=== PATIENT | male | born 1950 | race Caucasian/White ===

== ENCOUNTER 2022-12-24 01:16 | Inpatient (IN) | payer OTHER ==
[2022-12-24 01:53] LABS: #Basophils 0.1 thou/uL (0.0-0.2); #Eosinphils 0.1 thou/uL (0.0-0.7); #Lymphocytes 1.6 thou/uL (1.20-3.40); #Monocytes 0.7 thou/uL (0.11-0.59); #Neutrophils 7.8 thou/uL (1.40-6.50); %Basophils 0.5 % (0.0-1.0); %Eosinophils 0.9 % (0.0-10.0); %Lymphocytes 15.8 % (21.0-51.0); %Monocytes 6.5 % (0.0-10.0); %Neutrophils 76.3 % (42.0-75.0); Hemoglobin 10.3 g/dL (14.0-18.0); Mean Corpuscular Hemoglobin 26.6 pg (27.0-31.0); Mean Corpuscular Volume 80.6 fl (78.0-98.0); Mean Platelet Volume 8.7 fL (7.4-10.4); Platelet Count 247 10x3/uL (130-400); Red Blood Cell (RBC) Count 3.88 mill/uL (4.70-6.10); White Blood Cell (WBC) Count 10.2 10x3/uL (4.8-10.8)
[2022-12-24 02:03] LABS: INR-International Normal Ratio 1.2; PTT 24.7 sec (22.9-36.1); Prothrombin Time 15.4 sec (12.0-14.7)
[2022-12-24 02:16] LABS: ALT (SGPT) 10 U/L (8-55); AST (SGOT) 16 U/L (5-34); Acetaminophen Less than 10.0 mcg/mL (10.0-30.0); Albumin 3.3 g/dL (3.4-4.8); Alcohol Less than 10 mg/dL (Less than 10); Alkaline Phosphatase 89 U/L (40-110); Anion Gap 15 mmol/L (10-20); BUN (Urea Nitrogen) 11 mg/dL (8.4-25.7); Bilirubin, Total 0.4 mg/dL (0.2-1.2); CK (CPK) 63 U/L (30-200); Calc. Creatinine Clearance 0 mL/min (70-130); Calcium 8.1 mg/dL (7.8-10.44); Carbon Dioxide 23 mmol/L (23-31); Chloride 99 mmol/L (98-107); Estimated GFR 90; Globulin 2.9 g/dL (2.4-3.5); Glucose 147 mg/dL (83-110); Protein, Total 6.2 g/dL (5.8-8.1); Salicylate Less than 8.0 mg/dL (15.0-30.0); Sodium 135 mmol/L (136-145)
[2022-12-24 02:23] LABS: Potassium 2.3 mmol/L (3.5-5.1)
[2022-12-24 02:36] LABS: CKMB 1.3 ng/mL (0-6.6)
[2022-12-24] MEDS ORDERED: Aspirin Chewable 81 MG TAB ONE (02:43)
[2022-12-24] MEDS ORDERED: Potassium Chloride 20 MEQ TAB ONE (02:43)
[2022-12-24] MEDS: Potassium Chloride 10 MEQ in Premix Bag 1 BAG IVPB SCH ×2 (03:15→07:21)
[2022-12-24 03:24] LABS: Bilirubin Negative (Negative); Blood, Urine Negative (Negative); Clarity Clear (Clear); Glucose, Urine (Dipstick) Greater than 1000 mg/dL (Negative); Ketone, Urine Negative (Negative); Leukocyte Negative Leu/uL (Negative); Nitrite Negative (Negative); Protein, Urine (Dipstick) 10 mg/dL (Neg-Trace); Specific Gravity, Urine 1.039 (1.002-1.036); Urobilinogen Normal mg/dL (Less than 2)
[2022-12-24 03:33] LABS: Amphetamine Not Detected (NotDetected); Barbiturates Screen Not Detected (NotDetected); Benzodiazepine Screen Not Detected (NotDetected); Cocaine Metabolite Screen Not Detected (NotDetected); Methadone Not Detected (NotDetected); Methamphetamine Not Detected (NotDetected); Opiate Screen Detected (NotDetected); Oxycodone Screen Not Detected (NotDetected); Phencyclidine (PCP) Not Detected (NotDetected); THC/Cannabinoid Screen Not Detected (NotDetected); Tricyclic Screen Not Detected (NotDetected)
[2022-12-24 03:53] LABS: SARS-CoV-2 NAA Rapid Test Not Detected (NotDetected)
[2022-12-24] MEDS ORDERED: HYDROcodone/Acetaminophen 10/325 mg Tablet ONE (04:23)
[2022-12-24] MEDS ORDERED: Gabapentin 300 MG CAP PO SCH (04:30)
[2022-12-24 05:02] LABS: Lactic Acid 1.1 mmol/L (0.5-2.2)
[2022-12-24] MEDS ORDERED: Dextrose 5% in Water 1,000 ML IV PRN (05:24)
[2022-12-24] MEDS ORDERED: Ondansetron PF 4 MG/2 ML Vial IVP PRN (05:24)
[2022-12-24] MEDS ORDERED: Acetaminophen 650 MG Suppository PR PRN (05:24)
[2022-12-24] MEDS ORDERED: Acetaminophen 325 MG TAB PO PRN (05:24)
[2022-12-24] MEDS ORDERED: hydrALAZINE 20 MG/ML VIAL SLOW IVP PRN (05:24)
[2022-12-24] MEDS ORDERED: HumaLOG 300 UNITS/3 ML VIAL SC PRN (05:24)
[2022-12-24] MEDS ORDERED: Ondansetron ODT 4 MG TAB PO PRN (05:24)
[2022-12-24] MEDS ORDERED: Dextrose 50% Abboject 50 ML SYRINGE SLOW IVP PRN (05:24)
[2022-12-24] MEDS ORDERED: Electrolyte Replacement Protocol 1 EACH FS SCH (05:30)
[2022-12-24 06:09] LABS: #Eosinphils 0.1 thou/uL (0.0-0.7); #Lymphocytes 1.3 thou/uL (1.20-3.40); #Monocytes 0.7 thou/uL (0.11-0.59); #Neutrophils 8.2 thou/uL (1.40-6.50); %Basophils 0.3 % (0.0-1.0); %Eosinophils 1.2 % (0.0-10.0); %Lymphocytes 12.3 % (21.0-51.0); %Neutrophils 79.2 % (42.0-75.0); Hemoglobin 10.4 g/dL (14.0-18.0); Mean Corpuscular HGB CONC 31.9 g/dL (32.0-36.0); Mean Corpuscular Hemoglobin 25.7 pg (27.0-31.0); Mean Corpuscular Volume 80.5 fl (78.0-98.0); Mean Platelet Volume 8.8 fL (7.4-10.4); Platelet Count 263 10x3/uL (130-400); RBC Distribution Width 15.3 % (11.5-14.5); Red Blood Cell (RBC) Count 4.04 mill/uL (4.70-6.10); White Blood Cell (WBC) Count 10.3 10x3/uL (4.8-10.8)
[2022-12-24 06:27] LABS: Anion Gap 15 mmol/L (10-20); BUN (Urea Nitrogen) 11 mg/dL (8.4-25.7); Calc. Creatinine Clearance 0 mL/min (70-130); Calcium 8.1 mg/dL (7.8-10.44); Carbon Dioxide 24 mmol/L (23-31); Chloride 100 mmol/L (98-107); Estimated GFR 90; Glucose 56 mg/dL (83-110); Sodium 136 mmol/L (136-145)
[2022-12-24 06:34] LABS: Potassium 2.6 mmol/L (3.5-5.1)
[2022-12-24] MEDS: Sodium Chloride 0.9% 1,000 ML IV SCH ×2 (06:50→15:35)
[2022-12-24] MEDS: Potassium Chloride 20 MEQ TAB PO SCH ×5 (07:22→16:33)
[2022-12-24] MEDS ORDERED: Magnesium 2 GM/50 ML(in water) 2 GM in Premix Bag 1 BAG IVPB SCH ×2 (08:00→12:45)
[2022-12-24 09:22] LABS: Troponin I 0.039 ng/mL (< 0.028)
[2022-12-24] MEDS ORDERED: Iopamidol-370 76% 500 ML 1 ML ONE (09:24)
[2022-12-24] MEDS ORDERED: Magnevist 469MG/ML 20 ML VIAL ONE (09:44)
[2022-12-24] MEDS: Aspirin 81 mg Enteric Coated Tablet PO SCH (09:48)
[2022-12-24 10:48] LABS: Anion Gap 16 mmol/L (10-20); BUN (Urea Nitrogen) 11 mg/dL (8.4-25.7); Calc. Creatinine Clearance 0 mL/min (70-130); Carbon Dioxide 22 mmol/L (23-31); Chloride 99 mmol/L (98-107); Estimated GFR 87; Glucose 87 mg/dL (83-110); Potassium 2.7 mmol/L (3.5-5.1); Sodium 134 mmol/L (136-145)
[2022-12-24 10:55] LABS: Anion Gap 15 mmol/L (10-20); BUN (Urea Nitrogen) 11 mg/dL (8.4-25.7); Calc. Creatinine Clearance 0 mL/min (70-130); Calcium 8.2 mg/dL (7.8-10.44); Carbon Dioxide 24 mmol/L (23-31); Chloride 100 mmol/L (98-107); Estimated GFR 81; Glucose 165 mg/dL (83-110); Potassium 2.9 mmol/L (3.5-5.1); Sodium 136 mmol/L (136-145)
[2022-12-24 21:55] VITALS: BMI 20.3
[2022-12-25 06:00] LABS: #Eosinphils 0.3 thou/uL (0.0-0.7); #Lymphocytes 1.2 thou/uL (1.20-3.40); #Monocytes 0.5 thou/uL (0.11-0.59); #Neutrophils 5.3 thou/uL (1.40-6.50); %Basophils 0.5 % (0.0-1.0); %Eosinophils 4.2 % (0.0-10.0); %Lymphocytes 16.5 % (21.0-51.0); %Monocytes 7.1 % (0.0-10.0); %Neutrophils 71.8 % (42.0-75.0); Hemoglobin 10.1 g/dL (14.0-18.0); Mean Corpuscular Hemoglobin 26.1 pg (27.0-31.0); Mean Corpuscular Volume 81.5 fl (78.0-98.0); Mean Platelet Volume 8.7 fL (7.4-10.4); Platelet Count 231 10x3/uL (130-400); Red Blood Cell (RBC) Count 3.88 mill/uL (4.70-6.10); White Blood Cell (WBC) Count 7.4 10x3/uL (4.8-10.8)
[2022-12-25 06:20] LABS: Anion Gap 11 mmol/L (10-20); BUN (Urea Nitrogen) 8 mg/dL (8.4-25.7); Calc. Creatinine Clearance 59 mL/min (70-130); Calcium 7.5 mg/dL (7.8-10.44); Carbon Dioxide 25 mmol/L (23-31); Cardiac Risk 4.4 (Less than 4.5); Chloride 100 mmol/L (98-107); Cholesterol 74 mg/dl (< 200 Desired); Estimated GFR 90; Glucose 304 mg/dL (83-110); HDL Cholesterol 17 mg/dL (>60 Neg Risk); LDL Cholesterol, Calculated 38 mg/dL; Magnesium 1.9 mg/dL (1.6-2.6); Potassium 3.2 mmol/L (3.5-5.1); Sodium 133 mmol/L (136-145); Triglycerides 95 mg/dL (Less than 150)
[2022-12-25] MEDS: HumaLOG 300 UNITS/3 ML VIAL SC PRN ×2 (06:51→21:20)
[2022-12-25] MEDS ORDERED: Magnesium 2 GM/50 ML(in water) 2 GM in Premix Bag 1 BAG IVPB SCH (08:15)
[2022-12-25] MEDS ORDERED: Potassium Chloride 20 MEQ TAB PO SCH (08:30)
[2022-12-25] MEDS: Aspirin 81 mg Enteric Coated Tablet PO SCH (10:23)
[2022-12-25] MEDS ORDERED: Insulin Glargine 30 UNITS/0.3 ML VIAL SC SCH ×2 (11:00→21:00)
[2022-12-25] MEDS ORDERED: Acetaminophen/Codeine 30-300mg Tablet PO PRN (19:56)
[2022-12-25] MEDS: Atorvastatin Calcium 40 MG TAB PO SCH (21:17)
[2022-12-25] MEDS: traZODone HCl 50 MG TAB PO SCH (21:18)
[2022-12-25] MEDS ORDERED: HumaLOG 300 UNITS/3 ML VIAL SC SCH (21:45)
[2022-12-25 22:12] LABS: Hemoglobin A1c 9.3 % (4.0-6.0)
[2022-12-26] MEDS ORDERED: Insulin Glargine 30 UNITS/0.3 ML VIAL SC SCH (09:00)
[2022-12-26] MEDS ORDERED: Regadenoson 0.4 MG/5 ML SYRINGE ONE (09:04)
[2022-12-26] MEDS: Finasteride 5 MG TAB PO SCH (09:21)
[2022-12-26] MEDS: Venlafaxine HCl XR 150 MG CAP PO SCH (09:21)
[2022-12-26] MEDS: Tamsulosin HCl 0.4 MG CAP PO SCH (09:21)
[2022-12-26] MEDS: Clopidogrel Bisulfate 75 MG TAB PO SCH (09:21)
[2022-12-26] MEDS: Aspirin 81 mg Enteric Coated Tablet PO SCH (09:21)
[2022-12-26 09:23] LABS: #Eosinphils 0.3 thou/uL (0.0-0.7); #Lymphocytes 1.9 thou/uL (1.20-3.40); #Monocytes 0.8 thou/uL (0.11-0.59); #Neutrophils 7.7 thou/uL (1.40-6.50); %Basophils 0.2 % (0.0-1.0); %Eosinophils 3.1 % (0.0-10.0); %Neutrophils 71.7 % (42.0-75.0); Hemoglobin 12.3 g/dL (14.0-18.0); Mean Corpuscular HGB CONC 30.9 g/dL (32.0-36.0); Mean Corpuscular Hemoglobin 25.1 pg (27.0-31.0); Mean Corpuscular Volume 81.5 fl (78.0-98.0); Mean Platelet Volume 8.4 fL (7.4-10.4); Platelet Count 310 10x3/uL (130-400); RBC Distribution Width 15.3 % (11.5-14.5); White Blood Cell (WBC) Count 10.7 10x3/uL (4.8-10.8)
[2022-12-26 09:51] LABS: ALT (SGPT) 12 U/L (8-55); AST (SGOT) 18 U/L (5-34); Alkaline Phosphatase 104 U/L (40-110); Anion Gap 17 mmol/L (10-20); BUN (Urea Nitrogen) 14 mg/dL (8.4-25.7); Bilirubin, Total 0.6 mg/dL (0.2-1.2); Calc. Creatinine Clearance 51 mL/min (70-130); Carbon Dioxide 26 mmol/L (23-31); Chloride 99 mmol/L (98-107); Estimated GFR 75; Globulin 3.5 g/dL (2.4-3.5); Glucose 173 mg/dL (83-110); Potassium 3.7 mmol/L (3.5-5.1); Protein, Total 7.5 g/dL (5.8-8.1); Sodium 138 mmol/L (136-145)
[2022-12-26] MEDS: HumaLOG 300 UNITS/3 ML VIAL SC PRN ×3 (11:52→17:56)
[2022-12-26 17:20] LABS: Glucose POC Confirmation 596 mg/dL (83-110)
[2022-12-26] MEDS ORDERED: Sucralfate 1 GM TAB PO SCH (19:45)
[2022-12-26] MEDS: Insulin Glargine 30 UNITS/0.3 ML VIAL SC SCH (20:22)
[2022-12-26] MEDS: Atorvastatin Calcium 40 MG TAB PO SCH (20:22)
[2022-12-26] MEDS: traZODone HCl 50 MG TAB PO SCH (20:22)
[2022-12-27 00:06] LABS: Campy jejuni + coli by PCR Negative (Negative); STEC Shiga Toxin 1+2 Negative (Negative); Salmonella spp. by PCR Negative (Negative); Shigella spp + EIEC by PCR Negative (Negative)
[2022-12-27 05:26] LABS: #Eosinphils 0.3 thou/uL (0.0-0.7); #Lymphocytes 1.8 thou/uL (1.20-3.40); #Monocytes 0.6 thou/uL (0.11-0.59); %Basophils 0.5 % (0.0-1.0); %Eosinophils 3.1 % (0.0-10.0); %Lymphocytes 18.1 % (21.0-51.0); %Monocytes 6.2 % (0.0-10.0); %Neutrophils 72.1 % (42.0-75.0); Hemoglobin 11.2 g/dL (14.0-18.0); Mean Corpuscular HGB CONC 32.5 g/dL (32.0-36.0); Mean Corpuscular Hemoglobin 26.1 pg (27.0-31.0); Mean Corpuscular Volume 80.5 fl (78.0-98.0); Mean Platelet Volume 8.9 fL (7.4-10.4); Platelet Count 259 10x3/uL (130-400); RBC Distribution Width 15.1 % (11.5-14.5); Red Blood Cell (RBC) Count 4.27 mill/uL (4.70-6.10); White Blood Cell (WBC) Count 9.7 10x3/uL (4.8-10.8)
[2022-12-27 05:50] LABS: Anion Gap 14 mmol/L (10-20); BUN (Urea Nitrogen) 16 mg/dL (8.4-25.7); Calc. Creatinine Clearance 63 mL/min (70-130); Calcium 8.4 mg/dL (7.8-10.44); Carbon Dioxide 24 mmol/L (23-31); Chloride 102 mmol/L (98-107); Estimated GFR 92; Glucose 150 mg/dL (83-110); Magnesium 2.1 mg/dL (1.6-2.6); Phosphorus 3.7 mg/dL (2.3-4.7); Potassium 3.6 mmol/L (3.5-5.1); Sodium 136 mmol/L (136-145)
[2022-12-27 08:00] VITALS: BP 123/73
[2022-12-27] MEDS ORDERED: fentaNYL PF 100 MCG/2 ML SYRINGE ONE (10:06)
[2022-12-27] MEDS: Aspirin 81 mg Enteric Coated Tablet PO SCH (10:58)
[2022-12-27] MEDS: Finasteride 5 MG TAB PO SCH (10:58)
[2022-12-27] MEDS: Clopidogrel Bisulfate 75 MG TAB PO SCH (10:58)
[2022-12-27] MEDS: Tamsulosin HCl 0.4 MG CAP PO SCH (10:59)
[2022-12-27] MEDS: Venlafaxine HCl XR 150 MG CAP PO SCH (10:59)
[2022-12-27] MEDS ORDERED: Insulin Glargine 30 UNITS/0.3 ML VIAL SC SCH (11:00)
[2022-12-27] MEDS ORDERED: Protamine Sulfate 50 MG/5 ML VIAL ONE (12:44)
[2022-12-27] MEDS ORDERED: Heparin 5,000 UNITS/ML VIAL ONE (12:44)
[2022-12-27] MEDS ORDERED: Bupivacaine/Epinephrine 0.25% 30 ML VIAL ONE (12:44)
[2022-12-27] MEDS ORDERED: CEFAZOLIN 2 GM VIAL ONE (12:51)
[2022-12-27] MEDS ORDERED: Sodium Chloride 0.9% 100 ML ONE (12:51)
[2022-12-27] MEDS ORDERED: ePHEDrine 50 MG/ML VIAL ONE (13:01)
[2022-12-27] MEDS ORDERED: Rocuronium Bromide 10 MG/ML (10ML VIAL) ONE (13:01)
[2022-12-27] MEDS ORDERED: PHENYLEPHRINE-NS 100 MCG/ML 10 ML SYRINGE ONE (13:01)
[2022-12-27] MEDS ORDERED: Glycopyrrolate 0.2 MG/ML 5 ML SYRINGE ONE (13:01)
[2022-12-27] MEDS ORDERED: Labetalol HCl 100 MG/20 ML VIAL ONE (13:01)
[2022-12-27] MEDS ORDERED: PROPOFOL 200 MG/20 ML VIAL ONE (13:01)
[2022-12-27] MEDS ORDERED: NEOSTIGMINE 3 MG/3 ML SYR 3 MG/3 ML SYRINGE ONE (13:01)
[2022-12-27] MEDS ORDERED: Bupivacaine HCl 0.5%/Epinephrine 1:200,000/PF 30 ml Vial ONE (13:32)
[2022-12-27] MEDS ORDERED: Fentanyl 100 MCG/2 ML VIAL ONE ×2 (15:12→15:40)
[2022-12-27] MEDS ORDERED: Ondansetron PF 4 MG/2 ML Vial IVP PRN (15:14)
[2022-12-27] MEDS ORDERED: Sodium Chloride 0.9% 1,000 ML IV SCH (15:14)
[2022-12-27] MEDS ORDERED: Acetaminophen 325 MG TAB PO PRN (15:14)
[2022-12-27] MEDS ORDERED: traMADol HCl 50 MG TAB PO PRN (15:14)
[2022-12-27] MEDS ORDERED: Ipratropium/Albuterol 3 ML NEB NEB PRN (15:14)
[2022-12-27] MEDS ORDERED: niCARdipine 25 MG in Sodium Chloride 0.9% 250 ML 250 ML IVPB PRN (15:14)
[2022-12-27] MEDS ORDERED: Fentanyl 100 MCG/2 ML VIAL SLOW IVP PRN (15:14)
[2022-12-27] MEDS ORDERED: Phenylephrine 40 MG/NS 250 ML 40 MG in Premix Bag 1 BAG IVPB PRN (15:22)
[2022-12-27] MEDS ORDERED: Sodium Chloride 0.9% 500 ML IVPB SCH (19:45)
[2022-12-27] MEDS: Atorvastatin Calcium 40 MG TAB PO SCH (21:01)
[2022-12-27] MEDS: traZODone HCl 50 MG TAB PO SCH (21:01)
[2022-12-27] MEDS: Insulin Glargine 30 UNITS/0.3 ML VIAL SC SCH (21:02)
[2022-12-27] MEDS: CEFAZOLIN 2 GM in Sodium Chloride 0.9% 100 ML IVPB SCH (21:02)
[2022-12-28] MEDS: CEFAZOLIN 2 GM in Sodium Chloride 0.9% 100 ML IVPB SCH (05:44)
[2022-12-28] MEDS: HumaLOG 300 UNITS/3 ML VIAL SC PRN (06:41)
[2022-12-28 08:13] VITALS: TEMP 97.6
[2022-12-28] MEDS: Aspirin 81 mg Enteric Coated Tablet PO SCH (09:09)
[2022-12-28] MEDS: Clopidogrel Bisulfate 75 MG TAB PO SCH (09:09)
[2022-12-28] MEDS: Finasteride 5 MG TAB PO SCH (09:09)
[2022-12-28] MEDS: Venlafaxine HCl XR 150 MG CAP PO SCH (09:10)
[2022-12-28] MEDS: Tamsulosin HCl 0.4 MG CAP PO SCH (09:10)
== END 2022-12-28 14:10 | disposition home or self-care (01) | DRG 38 ==
LOC: ERS 01:16 → ERHOLD 04:18 → NEURO 11:55 → CCU 12-27 08:48 → IMCU/EMU 12-27 17:43
PROVIDERS: ADMIT Student in an Organized Health Care Education/Training Program; ATTEND Internal Medicine
PROC: 03CL0ZZ Extirpation of Matter from Left Internal Carotid Artery, Open Approach (ICD-10-PCS; principal; 2022-12-27)
PROC: 03UL0KZ Supplement Left Internal Carotid Artery with Nonautologous Tissue Substitute, Open Approach (ICD-10-PCS; 2022-12-27)
DX: I63.232 Cerebral infarction due to unspecified occlusion or stenosis of left carotid arteries (principal); G81.94 Hemiplegia, unspecified affecting left nondominant side; I25.10 Atherosclerotic heart disease of native coronary artery without angina pectoris; G62.9 Polyneuropathy, unspecified; I10 Essential (primary) hypertension; E78.5 Hyperlipidemia, unspecified; F17.210 Nicotine dependence, cigarettes, uncomplicated; E11.40 Type 2 diabetes mellitus with diabetic neuropathy, unspecified; E87.6 Hypokalemia; R77.8 Other specified abnormalities of plasma proteins; D64.9 Anemia, unspecified; K52.9 Noninfective gastroenteritis and colitis, unspecified; I45.81 Long QT syndrome; E11.51 Type 2 diabetes mellitus with diabetic peripheral angiopathy without gangrene; N40.0 Benign prostatic hyperplasia without lower urinary tract symptoms; Z79.82 Long term (current) use of aspirin; Z95.1 Presence of aortocoronary bypass graft; Z79.4 Long term (current) use of insulin; Z79.899 Other long term (current) drug therapy; Z90.49 Acquired absence of other specified parts of digestive tract; Z98.890 Other specified postprocedural states; Z79.2 Long term (current) use of antibiotics; Z20.822 Contact with and (suspected) exposure to COVID-19; Z79.02 Long term (current) use of antithrombotics/antiplatelets; R47.1 Dysarthria and anarthria; R29.702 NIHSS score 2
CPT/HCPCS: 36415; 36416; 70450; 70496; 70498; 70553; 71045; 78452; 80048; 80053; 80061; 80306; 80307; 81003; 82550; 82553; 83036; 83605; 83690; 83735; 83880; 84100; 84484; 85025; 85610; 85730; 87324; 87449; 87505; 93005; 93017; 93306; 93923; 94640; A9500; A9579; C1768; C1776; J1644; J1650; J1815; J2405; J2704; J2720; J2785; J3010; J3475; J3480; J3490; J7030; J7050; Q9967; U0002

== ENCOUNTER 2023-01-01 11:08 | Emergency (ER) | payer MEDICARE, OTHER ==
[2023-01-01] MEDS ORDERED: Aspirin Chewable 81 MG TAB ONE (12:12)
[2023-01-01 12:17] LABS: #Basophils 0.1 thou/uL (0.0-0.2); #Eosinphils 0.2 thou/uL (0.0-0.7); #Lymphocytes 1.8 thou/uL (1.20-3.40); #Monocytes 0.6 thou/uL (0.11-0.59); #Neutrophils 11.9 thou/uL (1.40-6.50); %Basophils 0.5 % (0.0-1.0); %Eosinophils 1.4 % (0.0-10.0); %Lymphocytes 12.5 % (21.0-51.0); %Monocytes 4.3 % (0.0-10.0); %Neutrophils 81.3 % (42.0-75.0); Hemoglobin 10.9 g/dL (14.0-18.0); Mean Corpuscular HGB CONC 31.2 g/dL (32.0-36.0); Mean Corpuscular Hemoglobin 25.5 pg (27.0-31.0); Mean Corpuscular Volume 81.6 fl (78.0-98.0); Mean Platelet Volume 8.8 fL (7.4-10.4); Platelet Count 394 10x3/uL (130-400); RBC Distribution Width 15.8 % (11.5-14.5); Red Blood Cell (RBC) Count 4.27 mill/uL (4.70-6.10); White Blood Cell (WBC) Count 14.7 10x3/uL (4.8-10.8)
[2023-01-01 12:39] LABS: ALT (SGPT) 16 U/L (8-55); AST (SGOT) 24 U/L (5-34); Albumin 3.8 g/dL (3.4-4.8); Alkaline Phosphatase 99 U/L (40-110); Anion Gap 16 mmol/L (10-20); BUN (Urea Nitrogen) 19 mg/dL (8.4-25.7); Bilirubin, Total 0.6 mg/dL (0.2-1.2); Calc. Creatinine Clearance 0 mL/min (70-130); Calcium 8.9 mg/dL (7.8-10.44); Carbon Dioxide 22 mmol/L (23-31); Chloride 100 mmol/L (98-107); Estimated GFR 64; Globulin 3.5 g/dL (2.4-3.5); Glucose 299 mg/dL (83-110); Lipase 8 U/L (8-78); Potassium 4.4 mmol/L (3.5-5.1); Protein, Total 7.3 g/dL (5.8-8.1); Sodium 134 mmol/L (136-145)
[2023-01-01 13:04] LABS: CKMB 6.7 ng/mL (0-6.6)
[2023-01-01 16:37] LABS: CKMB 16.1 ng/mL (0-6.6)
== END 2023-01-01 16:44 | disposition short-term general hospital (02) ==
LOC: ERS 11:08
DX: I21.4 Non-ST elevation (NSTEMI) myocardial infarction (principal); D72.829 Elevated white blood cell count, unspecified; F17.210 Nicotine dependence, cigarettes, uncomplicated; I10 Essential (primary) hypertension; I25.10 Atherosclerotic heart disease of native coronary artery without angina pectoris; E78.5 Hyperlipidemia, unspecified; E11.40 Type 2 diabetes mellitus with diabetic neuropathy, unspecified
CPT/HCPCS: 36415; 36416; 70450; 71045; 80053; 82553; 83690; 84484; 85025; 93005; 94760

== ENCOUNTER 2023-05-21 12:34 | Emergency (ER) | payer MEDICARE ==
[2023-05-21 14:51] LABS: #Basophils 0.1 thou/uL (0.0-0.2); #Monocytes 0.6 thou/uL (0.11-0.59); #Neutrophils 7.2 thou/uL (1.40-6.50); %Basophils 0.8 % (0.0-1.0); %Lymphocytes 15.2 % (21.0-51.0); %Monocytes 6.4 % (0.0-10.0); %Neutrophils 77.3 % (42.0-75.0); Hemoglobin 10.4 g/dL (14.0-18.0); Mean Corpuscular HGB CONC 30.3 g/dL (32.0-36.0); Mean Corpuscular Hemoglobin 22.4 pg (27.0-31.0); Mean Corpuscular Volume 73.8 fl (78.0-98.0); Mean Platelet Volume 10.7 fL (7.4-10.4); Platelet Count 309 10x3/uL (130-400); RBC Distribution Width 19.9 % (11.5-14.5); Red Blood Cell (RBC) Count 4.65 mill/uL (4.70-6.10); White Blood Cell (WBC) Count 9.3 10x3/uL (4.8-10.8)
[2023-05-21 15:25] LABS: Band 9 % (5-11); Burr Cells SLIGHT = 2-5 cells HPF (0-1); CellaVision Operator ID LAB.KB; Hypochromia SLIGHT = 6-15 cells HPF (0-5); Lymphocytes 10 % (21-51); Manual Diff?? YES; Microcytosis SLIGHT = 6-15 cells HPF (0-5); Monocytes 1 % (0-10); Neutrophil 79 % (42-75); Ovalocytes SLIGHT = 2-5 cells HPF (0-1); Platelet Adequacy Comment Platelets Normal; Polychromasia SLIGHT = 2-3 cells HPF (0-2); Reactive Lymphocytes 1 % (0-10); Total Cell Count 100
[2023-05-21 15:28] LABS: ALT (SGPT) 10 U/L (8-55); AST (SGOT) 11 U/L (5-34); Alkaline Phosphatase 93 U/L (40-110); Anion Gap 17 mmol/L (10-20); BUN (Urea Nitrogen) 14 mg/dL (8.4-25.7); Bilirubin, Total 0.6 mg/dL (0.2-1.2); Calc. Creatinine Clearance 0 mL/min (70-130); Calcium 8.6 mg/dL (7.8-10.44); Carbon Dioxide 25 mmol/L (23-31); Chloride 101 mmol/L (98-107); Estimated GFR 88; Globulin 2.8 g/dL (2.4-3.5); Glucose 203 mg/dL (83-110); Lipase 9 U/L (8-78); Potassium 3.5 mmol/L (3.5-5.1); Protein, Total 6.8 g/dL (5.8-8.1); Sodium 139 mmol/L (136-145)
== END 2023-05-21 15:48 | disposition home or self-care (01) ==
LOC: ERS 12:34
DX: K52.9 Noninfective gastroenteritis and colitis, unspecified (principal); I10 Essential (primary) hypertension; E78.5 Hyperlipidemia, unspecified; I25.10 Atherosclerotic heart disease of native coronary artery without angina pectoris; E11.40 Type 2 diabetes mellitus with diabetic neuropathy, unspecified; F17.210 Nicotine dependence, cigarettes, uncomplicated
CPT/HCPCS: 36415; 80053; 83690; 84484; 85025; 93005

== ENCOUNTER 2023-07-10 23:01 | Inpatient (IN) | payer OTHER, MEDICARE ==
[2023-07-11] MEDS ORDERED: Dextrose 50% Abboject 50 ML SYRINGE SLOW IVP PRN (00:20)
[2023-07-11] MEDS ORDERED: Ondansetron ODT 4 MG TAB PO PRN (00:20)
[2023-07-11] MEDS ORDERED: hydrALAZINE 20 MG/ML VIAL SLOW IVP PRN (00:20)
[2023-07-11] MEDS ORDERED: Ipratropium/Albuterol 3 ML NEB NEB PRN (00:20)
[2023-07-11] MEDS ORDERED: Glucagon 1 MG/ML KIT IM PRN (00:20)
[2023-07-11] MEDS ORDERED: Dextrose 5% in Water 1,000 ML IV PRN (00:20)
[2023-07-11] MEDS ORDERED: TETANUS, DIPHTHERIA TOX,ADULT (TDVAX) 0.5 ML VIAL IM ONE (01:00)
[2023-07-11] MEDS: Sodium Chloride 0.9% 1,000 ML IV SCH ×2 (01:21→15:00)
[2023-07-11] MEDS: Morphine 2 MG/ML VIAL SLOW IVP PRN ×3 (01:26→07:50)
[2023-07-11 05:46] LABS: #Basophils 0.1 thou/uL (0.0-0.2); #Eosinphils 0.2 thou/uL (0.0-0.7); #Monocytes 0.7 thou/uL (0.11-0.59); #Neutrophils 6.4 thou/uL (1.40-6.50); %Basophils 1.1 % (0.0-1.0); %Eosinophils 2.4 % (0.0-10.0); %Lymphocytes 19.4 % (21.0-51.0); %Monocytes 7.4 % (0.0-10.0); %Neutrophils 69.1 % (42.0-75.0); Hematocrit 40.1 % (42.0-52.0); Hemoglobin 12.3 g/dL (14.0-18.0); Mean Corpuscular HGB CONC 30.7 g/dL (32.0-36.0); Mean Corpuscular Hemoglobin 24.2 pg (27.0-31.0); Mean Corpuscular Volume 78.8 fl (78.0-98.0); Mean Platelet Volume 10.5 fL (7.4-10.4); Platelet Count 265 10x3/uL (130-400); RBC Distribution Width 23.9 % (11.5-14.5); Red Blood Cell (RBC) Count 5.09 mill/uL (4.70-6.10); White Blood Cell (WBC) Count 9.2 10x3/uL (4.8-10.8)
[2023-07-11] MEDS: Acetaminophen 500 MG TAB PO SCH ×3 (05:51→18:30)
[2023-07-11 06:10] LABS: ALT (SGPT) 10 U/L (8-55); AST (SGOT) 10 U/L (5-34); Albumin 3.7 g/dL (3.4-4.8); Alkaline Phosphatase 70 U/L (40-110); Anion Gap 16 mmol/L (10-20); BUN (Urea Nitrogen) 7 mg/dL (8.4-25.7); Bilirubin, Total 0.6 mg/dL (0.2-1.2); Calc. Creatinine Clearance 70 mL/min (70-130); Calcium 8.5 mg/dL (7.8-10.44); Carbon Dioxide 23 mmol/L (23-31); Chloride 103 mmol/L (98-107); Estimated GFR 94; Glucose 107 mg/dL (83-110); Potassium 3.2 mmol/L (3.5-5.1); Protein, Total 6.7 g/dL (5.8-8.1); Sodium 139 mmol/L (136-145)
[2023-07-11] MEDS ORDERED: Vancomycin 1 GM in Premix Bag 1 BAG IVPB SCH (06:45)
[2023-07-11] MEDS ORDERED: CEFAZOLIN 2 GM in Sodium Chloride 0.9% 100 ML IVPB SCH (06:45)
[2023-07-11] MEDS: Famotidine 20 MG TAB PO SCH ×2 (07:51→21:21)
[2023-07-11] MEDS: Morphine 4 MG/ML VIAL SLOW IVP PRN ×2 (09:33→18:35)
[2023-07-11] MEDS: Gabapentin 100 MG CAP PO SCH ×2 (09:34→18:29)
[2023-07-11] MEDS: traMADol HCl 50 MG TAB PO SCH ×3 (09:34→21:22)
[2023-07-11] MEDS ORDERED: Sodium Chloride 0.9% 100 ML ONE ×2 (10:58→11:12)
[2023-07-11] MEDS ORDERED: Tranexamic Acid 1,000 MG/10 ML VIAL ONE ×2 (10:58→14:37)
[2023-07-11] MEDS ORDERED: Vancomycin 1 GM/200 ML (FROZEN) BAG ONE (10:58)
[2023-07-11] MEDS ORDERED: fentaNYL 50 mcg/mL 1 mL Vial ONE ×5 (10:58→14:47)
[2023-07-11] MEDS ORDERED: Ketorolac Tromethamine 30 MG/ML VIAL ONE (11:01)
[2023-07-11] MEDS ORDERED: CEFAZOLIN 2 GM VIAL ONE (11:12)
[2023-07-11] MEDS ORDERED: Rocuronium Bromide 10 MG/ML (10ML VIAL) ONE (11:46)
[2023-07-11] MEDS ORDERED: PHENYLEPHRINE-NS 100 MCG/ML 10 ML SYRINGE ONE (11:46)
[2023-07-11] MEDS ORDERED: PROPOFOL 200 MG/20 ML VIAL ONE (11:46)
[2023-07-11] MEDS ORDERED: Lidocaine 1% PF 5 ML VIAL ONE (11:46)
[2023-07-11] MEDS ORDERED: Tranexamic Acid 1,000 MG in Sodium Chloride 0.9% 250 ML 250 ML IVPB SCH (12:00)
[2023-07-11] MEDS ORDERED: HYDROmorphone 2 MG/ML VIAL ONE (12:34)
[2023-07-11] MEDS ORDERED: SUGAMMADEX SODIUM 200 MG/2 ML VIAL ONE (13:02)
[2023-07-11] MEDS: Potassium Chloride 20 MEQ in Premix Bag 1 BAG IVPB SCH ×2 (15:55→18:29)
[2023-07-11] MEDS: HumaLOG 300 UNITS/3 ML VIAL SC PRN (18:35)
[2023-07-11] MEDS ORDERED: Insulin Glargine 30 UNITS/0.3 ML VIAL SC SCH (21:00)
[2023-07-11] MEDS: CEFAZOLIN 2 GM in Sodium Chloride 0.9% 100 ML IVPB SCH (21:21)
[2023-07-12] MEDS: Gabapentin 100 MG CAP PO SCH (00:03)
[2023-07-12] MEDS: Acetaminophen 500 MG TAB PO SCH ×4 (00:03→15:44)
[2023-07-12] MEDS: CEFAZOLIN 2 GM in Sodium Chloride 0.9% 100 ML IVPB SCH (03:57)
[2023-07-12] MEDS: traMADol HCl 50 MG TAB PO SCH ×4 (03:58→20:30)
[2023-07-12] MEDS: Sodium Chloride 0.9% 1,000 ML IV SCH (04:01)
[2023-07-12] MEDS: Morphine 2 MG/ML VIAL SLOW IVP PRN (05:17)
[2023-07-12 06:05] LABS: Anion Gap 21 mmol/L (10-20); BUN (Urea Nitrogen) 5 mg/dL (8.4-25.7); Calc. Creatinine Clearance 69 mL/min (70-130); Calcium 8.2 mg/dL (7.8-10.44); Carbon Dioxide 16 mmol/L (23-31); Chloride 103 mmol/L (98-107); Estimated GFR 94; Glucose 228 mg/dL (83-110); Potassium 3.7 mmol/L (3.5-5.1); Sodium 136 mmol/L (136-145)
[2023-07-12] MEDS: HumaLOG 300 UNITS/3 ML VIAL SC PRN ×3 (06:18→17:45)
[2023-07-12] MEDS: traMADol HCl 50 MG TAB PO PRN ×2 (06:57→21:41)
[2023-07-12 07:01] LABS: #Basophils 0.1 thou/uL (0.0-0.2); #Eosinphils 0.1 thou/uL (0.0-0.7); #Monocytes 0.9 thou/uL (0.11-0.59); #Neutrophils 10.9 thou/uL (1.40-6.50); %Basophils 0.7 % (0.0-1.0); %Lymphocytes 9.4 % (21.0-51.0); %Monocytes 6.7 % (0.0-10.0); %Neutrophils 81.6 % (42.0-75.0); Hematocrit 36.6 % (42.0-52.0); Mean Corpuscular HGB CONC 30.1 g/dL (32.0-36.0); Mean Corpuscular Hemoglobin 24.9 pg (27.0-31.0); Mean Platelet Volume 10.7 fL (7.4-10.4); Platelet Count 234 10x3/uL (130-400); RBC Distribution Width 24.2 % (11.5-14.5); Red Blood Cell (RBC) Count 4.42 mill/uL (4.70-6.10); White Blood Cell (WBC) Count 13.4 10x3/uL (4.8-10.8)
[2023-07-12 07:03] LABS: Mean Corpuscular Volume 82.8 fl (78.0-98.0)
[2023-07-12] MEDS: Lisinopril 20 MG TAB PO SCH (08:48)
[2023-07-12] MEDS: Gabapentin 300 MG CAP PO SCH ×3 (08:48→20:29)
[2023-07-12] MEDS: Finasteride 5 MG TAB PO SCH (08:48)
[2023-07-12] MEDS: Aspirin 81 mg Enteric Coated Tablet PO SCH ×2 (08:48→20:29)
[2023-07-12] MEDS: Isosorbide Mononitrate 30 MG ER.TAB PO SCH (08:48)
[2023-07-12] MEDS: DULoxetine 30 MG CAP PO SCH (08:48)
[2023-07-12] MEDS: Famotidine 20 MG TAB PO SCH ×2 (08:50→20:29)
[2023-07-12] MEDS ORDERED: Lisinopril 10 MG TAB PO SCH (09:00)
[2023-07-12] MEDS: Tamsulosin HCl 0.4 MG CAP PO SCH (20:29)
[2023-07-12] MEDS: Insulin Glargine 30 UNITS/0.3 ML VIAL SC SCH (20:31)
[2023-07-13] MEDS: Acetaminophen 500 MG TAB PO SCH ×4 (01:39→18:08)
[2023-07-13] MEDS: traMADol HCl 50 MG TAB PO SCH ×3 (05:05→16:18)
[2023-07-13 05:06] LABS: #Basophils 0.1 thou/uL (0.0-0.2); #Monocytes 0.9 thou/uL (0.11-0.59); #Neutrophils 11.8 thou/uL (1.40-6.50); %Basophils 0.5 % (0.0-1.0); %Eosinophils 0.1 % (0.0-10.0); %Lymphocytes 9.3 % (21.0-51.0); %Monocytes 6.3 % (0.0-10.0); %Neutrophils 83.2 % (42.0-75.0); Hematocrit 32.2 % (42.0-52.0); Hemoglobin 10.1 g/dL (14.0-18.0); Mean Corpuscular HGB CONC 31.4 g/dL (32.0-36.0); Mean Corpuscular Hemoglobin 25.1 pg (27.0-31.0); Mean Platelet Volume 10.9 fL (7.4-10.4); Platelet Count 240 10x3/uL (130-400); RBC Distribution Width 23.9 % (11.5-14.5); Red Blood Cell (RBC) Count 4.02 mill/uL (4.70-6.10); White Blood Cell (WBC) Count 14.2 10x3/uL (4.8-10.8)
[2023-07-13 05:36] LABS: Anion Gap 21 mmol/L (10-20); BUN (Urea Nitrogen) 13 mg/dL (8.4-25.7); Calc. Creatinine Clearance 67 mL/min (70-130); Calcium 8.7 mg/dL (7.8-10.44); Carbon Dioxide 17 mmol/L (23-31); Chloride 101 mmol/L (98-107); Estimated GFR 93; Glucose 251 mg/dL (83-110); Potassium 3.6 mmol/L (3.5-5.1); Sodium 135 mmol/L (136-145)
[2023-07-13 05:45] LABS: Mean Corpuscular Volume 80.1 fl (78.0-98.0)
[2023-07-13] MEDS: HumaLOG 300 UNITS/3 ML VIAL SC PRN ×3 (06:33→21:07)
[2023-07-13] MEDS: Finasteride 5 MG TAB PO SCH (09:13)
[2023-07-13] MEDS: Gabapentin 300 MG CAP PO SCH ×3 (09:13→21:06)
[2023-07-13] MEDS: Isosorbide Mononitrate 30 MG ER.TAB PO SCH (09:13)
[2023-07-13] MEDS: Lisinopril 20 MG TAB PO SCH (09:14)
[2023-07-13] MEDS: DULoxetine 30 MG CAP PO SCH (09:14)
[2023-07-13] MEDS: Aspirin 81 mg Enteric Coated Tablet PO SCH ×2 (09:14→21:05)
[2023-07-13] MEDS: Insulin Glargine 30 UNITS/0.3 ML VIAL SC SCH ×2 (09:15→21:03)
[2023-07-13] MEDS: Famotidine 20 MG TAB PO SCH ×2 (09:15→21:05)
[2023-07-13] MEDS: Potassium Chloride 20 MEQ in Premix Bag 1 BAG IVPB SCH ×2 (10:48→11:27)
[2023-07-13] MEDS ORDERED: Potassium Chloride 20 MEQ TAB PO SCH (13:45)
[2023-07-13] MEDS ORDERED: Ziprasidone 20 MG VIAL IM SCH (18:15)
[2023-07-13] MEDS ORDERED: INSULN SC SCH (20:45)
[2023-07-13] MEDS ORDERED: INSULIN REGULAR HUMAN 100 UNIT/ML SC SCH (20:45)
[2023-07-13] MEDS ORDERED: [UNRECOGNIZED DRUG - OTHER] SC SCH (20:45)
[2023-07-13] MEDS ORDERED: HumaLOG 300 UNITS/3 ML VIAL SC PRN (20:54)
[2023-07-13] MEDS: Nicotine 14 MG PATCH TD SCH (21:00)
[2023-07-13] MEDS ORDERED: Oxazepam 10 MG CAP PO SCH (21:00)
[2023-07-13] MEDS: Tamsulosin HCl 0.4 MG CAP PO SCH (21:02)
[2023-07-13] MEDS: Gabapentin 100 MG CAP PO SCH (21:03)
[2023-07-13] MEDS: tiZANidine HCl 4 MG TAB PO SCH (21:04)
[2023-07-13] MEDS: Atorvastatin Calcium 40 MG TAB PO SCH (21:04)
[2023-07-13] MEDS: Acetaminophen/Codeine 30-300mg Tablet PO PRN (21:05)
[2023-07-13] MEDS: Ranolazine 500 MG ER.TAB PO SCH (21:05)
[2023-07-13] MEDS ORDERED: Lorazepam 20 MG/10ML 100 MG in Sodium Chloride 0.9% 50 ML IVPB SCH (22:30)
[2023-07-13] MEDS ORDERED: diphenhydrAMINE 50 MG/ML VIAL IVP SCH (22:30)
[2023-07-13] MEDS: Lorazepam 1 MG TAB PO PRN (23:01)
[2023-07-14] MEDS: Lorazepam 1 MG TAB PO PRN (03:22)
[2023-07-14 07:56] LABS: #Basophils 0.1 thou/uL (0.0-0.2); #Neutrophils 11.7 thou/uL (1.40-6.50); %Basophils 0.6 % (0.0-1.0); %Eosinophils 0.2 % (0.0-10.0); %Lymphocytes 8.3 % (21.0-51.0); %Monocytes 7.2 % (0.0-10.0); %Neutrophils 83.1 % (42.0-75.0); Hematocrit 34.6 % (42.0-52.0); Hemoglobin 10.7 g/dL (14.0-18.0); Mean Corpuscular HGB CONC 30.9 g/dL (32.0-36.0); Mean Corpuscular Hemoglobin 24.9 pg (27.0-31.0); Mean Corpuscular Volume 80.5 fl (78.0-98.0); Mean Platelet Volume 11.4 fL (7.4-10.4); Platelet Count 267 10x3/uL (130-400); RBC Distribution Width 24.6 % (11.5-14.5); White Blood Cell (WBC) Count 14.1 10x3/uL (4.8-10.8)
[2023-07-14 08:31] LABS: Hemoglobin A1c 7.6 % (4.0-6.0)
[2023-07-14] MEDS: Aspirin 81 mg Enteric Coated Tablet PO SCH ×2 (10:52→19:57)
[2023-07-14] MEDS: Finasteride 5 MG TAB PO SCH (10:52)
[2023-07-14] MEDS: Cyanocobalamin (Vitamin B-12) 1,000 MCG TAB PO SCH (10:52)
[2023-07-14] MEDS: DULoxetine 30 MG CAP PO SCH (10:52)
[2023-07-14] MEDS: Famotidine 20 MG TAB PO SCH ×2 (10:52→19:57)
[2023-07-14] MEDS: Cholecalciferol 1,000 UNITS (25 MCG) TAB PO SCH (10:52)
[2023-07-14] MEDS: Gabapentin 100 MG CAP PO SCH ×3 (10:53→19:57)
[2023-07-14] MEDS: Lisinopril 20 MG TAB PO SCH ×2 (10:53→12:01)
[2023-07-14] MEDS: Isosorbide Mononitrate 30 MG ER.TAB PO SCH (10:53)
[2023-07-14] MEDS: Gabapentin 300 MG CAP PO SCH ×2 (10:53→14:30)
[2023-07-14] MEDS: Ranolazine 500 MG ER.TAB PO SCH ×2 (10:53→19:56)
[2023-07-14] MEDS: Folic Acid 1 MG TAB PO SCH (10:53)
[2023-07-14] MEDS: Venlafaxine HCl XR 150 MG CAP PO SCH (11:02)
[2023-07-14] MEDS: tiZANidine HCl 4 MG TAB PO SCH ×3 (11:02→19:56)
[2023-07-14] MEDS: Thiamine 100 MG TAB PO SCH (11:02)
[2023-07-14] MEDS: Insulin Glargine 30 UNITS/0.3 ML VIAL SC SCH ×2 (11:06→20:36)
[2023-07-14] MEDS: HumaLOG 300 UNITS/3 ML VIAL SC PRN ×2 (12:01→17:29)
[2023-07-14] MEDS: Tamsulosin HCl 0.4 MG CAP PO SCH (19:56)
[2023-07-14] MEDS: Atorvastatin Calcium 40 MG TAB PO SCH (19:56)
[2023-07-14] MEDS: Senokot S 8.6-50 MG TAB PO SCH (19:57)
[2023-07-14] MEDS: Nicotine 14 MG PATCH TD SCH (20:08)
[2023-07-14] MEDS: Oxazepam 10 MG CAP PO SCH (20:29)
[2023-07-15] MEDS: HumaLOG 300 UNITS/3 ML VIAL SC PRN ×2 (06:16→14:49)
[2023-07-15] MEDS: Acetaminophen/Codeine 30-300mg Tablet PO PRN ×2 (06:16→12:15)
[2023-07-15] MEDS: Ranolazine 500 MG ER.TAB PO SCH ×2 (08:31→21:53)
[2023-07-15] MEDS: Gabapentin 100 MG CAP PO SCH ×3 (08:31→21:53)
[2023-07-15] MEDS: Lisinopril 20 MG TAB PO SCH (08:31)
[2023-07-15] MEDS: Thiamine 100 MG TAB PO SCH (08:32)
[2023-07-15] MEDS: tiZANidine HCl 4 MG TAB PO SCH ×3 (08:32→21:53)
[2023-07-15] MEDS: Oxazepam 10 MG CAP PO SCH ×3 (08:32→21:53)
[2023-07-15] MEDS: Senokot S 8.6-50 MG TAB PO SCH ×2 (08:32→21:53)
[2023-07-15] MEDS: Isosorbide Mononitrate 30 MG ER.TAB PO SCH (08:33)
[2023-07-15] MEDS: Insulin Glargine 30 UNITS/0.3 ML VIAL SC SCH ×2 (08:33→21:54)
[2023-07-15] MEDS: Polyethylene Glycol 3350 17 GM Packet PO SCH (08:33)
[2023-07-15] MEDS: Finasteride 5 MG TAB PO SCH (08:34)
[2023-07-15] MEDS: Cholecalciferol 1,000 UNITS (25 MCG) TAB PO SCH (08:34)
[2023-07-15] MEDS: Cyanocobalamin (Vitamin B-12) 1,000 MCG TAB PO SCH (08:34)
[2023-07-15] MEDS: DULoxetine 30 MG CAP PO SCH (08:34)
[2023-07-15] MEDS: Famotidine 20 MG TAB PO SCH (08:34)
[2023-07-15] MEDS: Folic Acid 1 MG TAB PO SCH (08:34)
[2023-07-15] MEDS: Venlafaxine HCl XR 150 MG CAP PO SCH (08:35)
[2023-07-15] MEDS: Aspirin 81 mg Enteric Coated Tablet PO SCH ×2 (08:35→21:53)
[2023-07-15] MEDS: Nicotine 14 MG PATCH TD SCH (21:52)
[2023-07-15] MEDS: Atorvastatin Calcium 40 MG TAB PO SCH (21:52)
[2023-07-15] MEDS: Tamsulosin HCl 0.4 MG CAP PO SCH (21:53)
[2023-07-15 22:59] LABS: Platelet Count 374 10x3/uL (130-400)
[2023-07-15 23:26] LABS: INR-International Normal Ratio 1.2
[2023-07-15 23:27] LABS: PTT 40.6 sec (22.9-36.1)
[2023-07-15 23:30] LABS: D-Dimer Test 1.14 *mcg/mL (0.27-0.43)
[2023-07-15 23:32] LABS: Fibrinogen 882 mg/dL (253-463)
[2023-07-15 23:52] LABS: ALT (SGPT) 46 U/L (8-55); AST (SGOT) 132 U/L (5-34); Albumin 3.4 g/dL (3.4-4.8); Alkaline Phosphatase 71 U/L (40-110); Anion Gap 20 mmol/L (10-20); BUN (Urea Nitrogen) 19 mg/dL (8.4-25.7); Bilirubin, Total 1.2 mg/dL (0.2-1.2); Calc. Creatinine Clearance 64 mL/min (70-130); Calcium 9.1 mg/dL (7.8-10.44); Carbon Dioxide 22 mmol/L (23-31); Chloride 101 mmol/L (98-107); Estimated GFR 92; Globulin 3.6 g/dL (2.4-3.5); Glucose 102 mg/dL (83-110); Potassium 3.1 mmol/L (3.5-5.1); Sodium 140 mmol/L (136-145)
[2023-07-16] MEDS: Acetaminophen/Codeine 30-300mg Tablet PO PRN (02:08)
[2023-07-16] MEDS: Insulin Glargine 30 UNITS/0.3 ML VIAL SC SCH ×3 (06:54→20:43)
[2023-07-16] MEDS ORDERED: Potassium Chloride 20 MEQ TAB PO SCH (08:30)
[2023-07-16] MEDS: Senokot S 8.6-50 MG TAB PO SCH ×2 (09:07→20:45)
[2023-07-16] MEDS: Thiamine 100 MG TAB PO SCH (09:07)
[2023-07-16] MEDS: Folic Acid 1 MG TAB PO SCH (09:07)
[2023-07-16] MEDS: tiZANidine HCl 4 MG TAB PO SCH ×3 (09:07→20:45)
[2023-07-16] MEDS: Isosorbide Mononitrate 30 MG ER.TAB PO SCH (09:07)
[2023-07-16] MEDS: Cholecalciferol 1,000 UNITS (25 MCG) TAB PO SCH (09:07)
[2023-07-16] MEDS: Gabapentin 100 MG CAP PO SCH ×3 (09:07→20:44)
[2023-07-16] MEDS: Oxazepam 10 MG CAP PO SCH ×3 (09:07→20:45)
[2023-07-16] MEDS: Lisinopril 20 MG TAB PO SCH (09:08)
[2023-07-16] MEDS: Cyanocobalamin (Vitamin B-12) 1,000 MCG TAB PO SCH (09:08)
[2023-07-16] MEDS: Venlafaxine HCl XR 150 MG CAP PO SCH (09:08)
[2023-07-16] MEDS: DULoxetine 30 MG CAP PO SCH (09:08)
[2023-07-16] MEDS: Finasteride 5 MG TAB PO SCH (09:08)
[2023-07-16] MEDS: Ranolazine 500 MG ER.TAB PO SCH ×2 (09:08→20:45)
[2023-07-16] MEDS: Polyethylene Glycol 3350 17 GM Packet PO SCH (09:09)
[2023-07-16] MEDS ORDERED: Iopamidol-370 76% 500 ML MDV (1 ML CHARGE) ONE (11:31)
[2023-07-16 12:21] LABS: Protein C Activity 92 % (78-152)
[2023-07-16 12:31] LABS: Magnesium 1.8 mg/dL (1.6-2.6); Phosphorus 5.4 mg/dL (2.3-4.7)
[2023-07-16] MEDS: HumaLOG 300 UNITS/3 ML VIAL SC PRN ×2 (13:39→18:12)
[2023-07-16] MEDS: Nicotine 14 MG PATCH TD SCH (20:43)
[2023-07-16] MEDS: Tamsulosin HCl 0.4 MG CAP PO SCH (20:45)
[2023-07-16] MEDS: Atorvastatin Calcium 40 MG TAB PO SCH (20:45)
[2023-07-17 06:44] LABS: #Basophils 0.1 thou/uL (0.0-0.2); #Monocytes 0.9 thou/uL (0.11-0.59); #Neutrophils 12.2 thou/uL (1.40-6.50); %Basophils 0.3 % (0.0-1.0); %Eosinophils 0.1 % (0.0-10.0); %Lymphocytes 8.9 % (21.0-51.0); %Monocytes 6.5 % (0.0-10.0); %Neutrophils 83.5 % (42.0-75.0); Hematocrit 31.2 % (42.0-52.0); Hemoglobin 9.9 g/dL (14.0-18.0); Mean Corpuscular HGB CONC 31.7 g/dL (32.0-36.0); Mean Corpuscular Hemoglobin 25.1 pg (27.0-31.0); Mean Corpuscular Volume 79.2 fl (78.0-98.0); Mean Platelet Volume 10.8 fL (7.4-10.4); Platelet Count 450 10x3/uL (130-400); RBC Distribution Width 24.1 % (11.5-14.5); Red Blood Cell (RBC) Count 3.94 mill/uL (4.70-6.10); White Blood Cell (WBC) Count 14.6 10x3/uL (4.8-10.8)
[2023-07-17 07:03] LABS: Phosphorus 4.6 mg/dL (2.3-4.7)
[2023-07-17 07:04] LABS: Anion Gap 22 mmol/L (10-20); BUN (Urea Nitrogen) 29 mg/dL (8.4-25.7); Calc. Creatinine Clearance 54 mL/min (70-130); Calcium 9.4 mg/dL (7.8-10.44); Carbon Dioxide 19 mmol/L (23-31); Chloride 106 mmol/L (98-107); Estimated GFR 81; Glucose 198 mg/dL (83-110); Magnesium 2.1 mg/dL (1.6-2.6); Potassium 4.2 mmol/L (3.5-5.1); Sodium 143 mmol/L (136-145)
[2023-07-17 07:25] LABS: CellaVision Operator ID LAB.GE; Hypochromia SLIGHT = 6-15 cells HPF (0-5); Platelet Adequacy Comment Platelets Increased; Polychromasia SLIGHT = 2-3 cells HPF (0-2)
[2023-07-17] MEDS: Thiamine 100 MG TAB PO SCH (10:00)
[2023-07-17] MEDS: Senokot S 8.6-50 MG TAB PO SCH ×2 (10:00→21:27)
[2023-07-17] MEDS: Venlafaxine HCl XR 150 MG CAP PO SCH (10:00)
[2023-07-17] MEDS: tiZANidine HCl 4 MG TAB PO SCH ×3 (10:00→21:26)
[2023-07-17] MEDS: Ranolazine 500 MG ER.TAB PO SCH ×2 (10:01→21:28)
[2023-07-17] MEDS: Oxazepam 10 MG CAP PO SCH ×3 (10:02→21:28)
[2023-07-17] MEDS: Polyethylene Glycol 3350 17 GM Packet PO SCH (10:02)
[2023-07-17] MEDS: Gabapentin 100 MG CAP PO SCH ×3 (10:03→21:28)
[2023-07-17] MEDS: Insulin Glargine 30 UNITS/0.3 ML VIAL SC SCH ×2 (10:03→21:28)
[2023-07-17] MEDS: Isosorbide Mononitrate 30 MG ER.TAB PO SCH (10:03)
[2023-07-17] MEDS: Lisinopril 20 MG TAB PO SCH (10:03)
[2023-07-17] MEDS: DULoxetine 30 MG CAP PO SCH (10:04)
[2023-07-17] MEDS: Cyanocobalamin (Vitamin B-12) 1,000 MCG TAB PO SCH (10:04)
[2023-07-17] MEDS: Cholecalciferol 1,000 UNITS (25 MCG) TAB PO SCH (10:04)
[2023-07-17] MEDS: Folic Acid 1 MG TAB PO SCH (10:04)
[2023-07-17] MEDS: Finasteride 5 MG TAB PO SCH (10:04)
[2023-07-17] MEDS: Lactated Ringer's 1,000 ML IV SCH (17:41)
[2023-07-17] MEDS: Acetaminophen/Codeine 30-300mg Tablet PO PRN (17:41)
[2023-07-17] MEDS: HumaLOG 300 UNITS/3 ML VIAL SC PRN ×2 (18:45→21:27)
[2023-07-17] MEDS: Tamsulosin HCl 0.4 MG CAP PO SCH (21:27)
[2023-07-17] MEDS: Atorvastatin Calcium 40 MG TAB PO SCH (21:27)
[2023-07-17] MEDS: Nicotine 14 MG PATCH TD SCH (23:00)
[2023-07-18 05:51] LABS: #Eosinphils 0.1 thou/uL (0.0-0.7); #Monocytes 0.9 thou/uL (0.11-0.59); #Neutrophils 12.9 thou/uL (1.40-6.50); %Basophils 0.3 % (0.0-1.0); %Eosinophils 0.5 % (0.0-10.0); %Lymphocytes 8.3 % (21.0-51.0); %Monocytes 6.2 % (0.0-10.0); Hematocrit 30.6 % (42.0-52.0); Hemoglobin 9.6 g/dL (14.0-18.0); Mean Corpuscular HGB CONC 31.4 g/dL (32.0-36.0); Mean Corpuscular Hemoglobin 24.8 pg (27.0-31.0); Mean Corpuscular Volume 79.1 fl (78.0-98.0); Mean Platelet Volume 10.6 fL (7.4-10.4); Platelet Count 461 10x3/uL (130-400); RBC Distribution Width 23.9 % (11.5-14.5); Red Blood Cell (RBC) Count 3.87 mill/uL (4.70-6.10); White Blood Cell (WBC) Count 15.3 10x3/uL (4.8-10.8)
[2023-07-18 06:10] LABS: Anion Gap 16 mmol/L (10-20); BUN (Urea Nitrogen) 27 mg/dL (8.4-25.7); Calc. Creatinine Clearance 59 mL/min (70-130); Calcium 9.3 mg/dL (7.8-10.44); Carbon Dioxide 24 mmol/L (23-31); Chloride 103 mmol/L (98-107); Estimated GFR 90; Potassium 4.2 mmol/L (3.5-5.1); Sodium 139 mmol/L (136-145)
[2023-07-18 06:14] LABS: Glucose 406 mg/dL (83-110)
[2023-07-18] MEDS: HumaLOG 300 UNITS/3 ML VIAL SC PRN ×2 (06:42→21:25)
[2023-07-18] MEDS ORDERED: Insulin Regular 300 UNITS/3 ML VIAL SC SCH (08:00)
[2023-07-18] MEDS ORDERED: HumaLOG 300 UNITS/3 ML VIAL SC SCH (08:00)
[2023-07-18] MEDS: Cyanocobalamin (Vitamin B-12) 1,000 MCG TAB PO SCH (09:18)
[2023-07-18] MEDS: Cholecalciferol 1,000 UNITS (25 MCG) TAB PO SCH (09:18)
[2023-07-18] MEDS: Lisinopril 20 MG TAB PO SCH (09:19)
[2023-07-18] MEDS: DULoxetine 30 MG CAP PO SCH (09:19)
[2023-07-18] MEDS: Gabapentin 100 MG CAP PO SCH ×3 (09:19→22:50)
[2023-07-18] MEDS: Isosorbide Mononitrate 30 MG ER.TAB PO SCH (09:19)
[2023-07-18] MEDS: Folic Acid 1 MG TAB PO SCH (09:19)
[2023-07-18] MEDS: Finasteride 5 MG TAB PO SCH (09:19)
[2023-07-18] MEDS: Thiamine 100 MG TAB PO SCH (09:21)
[2023-07-18] MEDS: Ranolazine 500 MG ER.TAB PO SCH ×2 (09:21→22:51)
[2023-07-18] MEDS: Polyethylene Glycol 3350 17 GM Packet PO SCH (09:21)
[2023-07-18] MEDS: Oxazepam 10 MG CAP PO SCH ×3 (09:21→22:50)
[2023-07-18] MEDS: Senokot S 8.6-50 MG TAB PO SCH ×2 (09:21→22:51)
[2023-07-18] MEDS: tiZANidine HCl 4 MG TAB PO SCH ×3 (09:21→22:51)
[2023-07-18] MEDS: Venlafaxine HCl XR 150 MG CAP PO SCH (09:22)
[2023-07-18] MEDS: Morphine 2 MG/ML VIAL SLOW IVP PRN ×2 (12:06→20:41)
[2023-07-18] MEDS: Insulin Glargine 30 UNITS/0.3 ML VIAL SC SCH ×2 (14:36→21:25)
[2023-07-18 14:43] LABS: Cardiolipin IgA Ab 2.1 APL-U/mL (<14 Negative); Cardiolipin IgG Ab 1.2 GPL-U/mL (<10 Negative); Cardiolipin IgM Ab 1.1 MPL-U/mL (<10 Negative); EliA APS New Method **** NEW METHOD ****
[2023-07-18] MEDS: Potassium Chloride 10 MEQ in Dextrose 5%-Lactated Ringers 1,000 ML IV SCH ×2 (14:45→20:52)
[2023-07-18] MEDS ORDERED: Ipratropium/Albuterol 3 ML NEB ONE (15:30)
[2023-07-18] MEDS ORDERED: HYDROmorphone 2 MG/ML VIAL ONE (16:09)
[2023-07-18] MEDS ORDERED: SUGAMMADEX SODIUM 200 MG/2 ML VIAL ONE (16:10)
[2023-07-18] MEDS ORDERED: fentaNYL PF 100 MCG/2 ML SYRINGE ONE (16:10)
[2023-07-18] MEDS ORDERED: Sodium Chloride 0.9% 100 ML ONE (16:15)
[2023-07-18] MEDS ORDERED: CEFAZOLIN 2 GM VIAL ONE (16:15)
[2023-07-18] MEDS ORDERED: Lidocaine 1% PF 5 ML VIAL ONE (16:30)
[2023-07-18] MEDS ORDERED: PHENYLEPHRINE-NS 100 MCG/ML 10 ML SYRINGE ONE (16:30)
[2023-07-18] MEDS ORDERED: Glycopyrrolate 0.2 MG/ML 5 ML SYRINGE ONE (16:30)
[2023-07-18] MEDS ORDERED: PROPOFOL 200 MG/20 ML VIAL ONE (16:30)
[2023-07-18] MEDS ORDERED: Ondansetron PF 4 MG/2 ML Vial ONE (16:30)
[2023-07-18] MEDS ORDERED: Rocuronium Bromide 10 MG/ML (10ML VIAL) ONE (16:30)
[2023-07-18] MEDS ORDERED: NEOSTIGMINE 3 MG/3 ML SYR 3 MG/3 ML SYRINGE ONE (16:30)
[2023-07-18] MEDS: Lactated Ringer's 1,000 ML IV SCH (17:08)
[2023-07-18] MEDS ORDERED: Albumin 5% 500 ML ONE (17:37)
[2023-07-18] MEDS ORDERED: HYDROmorphone 2 MG/ML VIAL SLOW IVP PRN (18:31)
[2023-07-18] MEDS ORDERED: Promethazine HCl 25 MG/ML VIAL IM PRN (18:31)
[2023-07-18] MEDS ORDERED: Morphine Sulfate 2 MG/ML SYRINGE SLOW IVP PRN (18:31)
[2023-07-18] MEDS ORDERED: Ondansetron HCl/PF 4 MG/2 ML Vial IVP PRN (18:31)
[2023-07-18 22:05] LABS: #Monocytes 0.9 thou/uL (0.11-0.59); #Neutrophils 10.4 thou/uL (1.40-6.50); %Basophils 0.2 % (0.0-1.0); %Eosinophils 0.1 % (0.0-10.0); %Lymphocytes 8.5 % (21.0-51.0); %Monocytes 7.3 % (0.0-10.0); %Neutrophils 83.3 % (42.0-75.0); Hemoglobin 9.3 g/dL (14.0-18.0); Mean Corpuscular Hemoglobin 25.2 pg (27.0-31.0); Mean Corpuscular Volume 81.3 fl (78.0-98.0); Mean Platelet Volume 10.2 fL (7.4-10.4); Platelet Count 398 10x3/uL (130-400); RBC Distribution Width 23.7 % (11.5-14.5); Red Blood Cell (RBC) Count 3.69 mill/uL (4.70-6.10); White Blood Cell (WBC) Count 12.5 10x3/uL (4.8-10.8)
[2023-07-18] MEDS: CEFAZOLIN 1 GM in Sodium Chloride 0.9% 100 ML IVPB SCH (22:20)
[2023-07-18] MEDS: Atorvastatin Calcium 40 MG TAB PO SCH (22:50)
[2023-07-18] MEDS: Nicotine 14 MG PATCH TD SCH (22:50)
[2023-07-18] MEDS: Tamsulosin HCl 0.4 MG CAP PO SCH (22:51)
[2023-07-18] MEDS ORDERED: Labetalol HCl 100 MG/20 ML VIAL SLOW IVP PRN (23:37)
[2023-07-18] MEDS: Morphine 4 MG/ML VIAL SLOW IVP PRN (23:43)
[2023-07-19] MEDS: Morphine 2 MG/ML VIAL SLOW IVP PRN (03:30)
[2023-07-19 05:34] LABS: #Eosinphils 0.1 thou/uL (0.0-0.7); #Monocytes 0.9 thou/uL (0.11-0.59); #Neutrophils 10.7 thou/uL (1.40-6.50); %Basophils 0.2 % (0.0-1.0); %Eosinophils 0.5 % (0.0-10.0); %Monocytes 7.1 % (0.0-10.0); %Neutrophils 81.7 % (42.0-75.0); Hematocrit 30.8 % (42.0-52.0); Hemoglobin 9.4 g/dL (14.0-18.0); Mean Corpuscular HGB CONC 30.5 g/dL (32.0-36.0); Mean Corpuscular Hemoglobin 24.8 pg (27.0-31.0); Mean Corpuscular Volume 81.3 fl (78.0-98.0); Mean Platelet Volume 10.6 fL (7.4-10.4); Platelet Count 426 10x3/uL (130-400); RBC Distribution Width 23.8 % (11.5-14.5); Red Blood Cell (RBC) Count 3.79 mill/uL (4.70-6.10); White Blood Cell (WBC) Count 13.1 10x3/uL (4.8-10.8)
[2023-07-19 06:03] LABS: Anion Gap 16 mmol/L (10-20); BUN (Urea Nitrogen) 14 mg/dL (8.4-25.7); Calc. Creatinine Clearance 64 mL/min (70-130); Calcium 8.6 mg/dL (7.8-10.44); Carbon Dioxide 23 mmol/L (23-31); Chloride 107 mmol/L (98-107); Estimated GFR 92; Glucose 315 mg/dL (83-110); Magnesium 1.9 mg/dL (1.6-2.6); Phosphorus 2.3 mg/dL (2.3-4.7); Sodium 142 mmol/L (136-145)
[2023-07-19] MEDS: HumaLOG 300 UNITS/3 ML VIAL SC PRN (06:04)
[2023-07-19] MEDS: CEFAZOLIN 1 GM in Sodium Chloride 0.9% 100 ML IVPB SCH ×2 (06:04→15:51)
[2023-07-19] MEDS: Morphine 4 MG/ML VIAL SLOW IVP PRN ×2 (06:11→10:48)
[2023-07-19] MEDS: Gabapentin 100 MG CAP PO SCH ×3 (09:59→20:19)
[2023-07-19] MEDS: Ranolazine 500 MG ER.TAB PO SCH ×2 (10:00→20:20)
[2023-07-19] MEDS: Senokot S 8.6-50 MG TAB PO SCH ×2 (10:00→20:18)
[2023-07-19] MEDS: Cholecalciferol 1,000 UNITS (25 MCG) TAB PO SCH (10:00)
[2023-07-19] MEDS: Isosorbide Mononitrate 30 MG ER.TAB PO SCH (10:00)
[2023-07-19] MEDS: Folic Acid 1 MG TAB PO SCH (10:00)
[2023-07-19] MEDS: DULoxetine 30 MG CAP PO SCH (10:00)
[2023-07-19] MEDS: Finasteride 5 MG TAB PO SCH (10:00)
[2023-07-19] MEDS: Venlafaxine HCl XR 150 MG CAP PO SCH (10:00)
[2023-07-19] MEDS: Thiamine 100 MG TAB PO SCH (10:01)
[2023-07-19] MEDS: Cyanocobalamin (Vitamin B-12) 1,000 MCG TAB PO SCH (10:01)
[2023-07-19] MEDS: Insulin Glargine 30 UNITS/0.3 ML VIAL SC SCH ×3 (10:01→21:14)
[2023-07-19] MEDS: Lisinopril 20 MG TAB PO SCH (10:02)
[2023-07-19] MEDS: Acetaminophen/Codeine 30-300mg Tablet PO PRN (10:03)
[2023-07-19] MEDS: traMADol HCl 50 MG TAB PO PRN (10:03)
[2023-07-19] MEDS ORDERED: Lorazepam 2 MG/ML VIAL SLOW IVP SCH (10:19)
[2023-07-19] MEDS: Polyethylene Glycol 3350 17 GM Packet PO SCH (11:07)
[2023-07-19 13:57] LABS: HEX PHOS LA Tube 1 58.9 SEC; HEX PHOS LA Tube 2 40.1 SEC; Hexagonal Phospholipid Neut 18.9 SEC (0-8.0)
[2023-07-19] MEDS: Atorvastatin Calcium 40 MG TAB PO SCH (20:18)
[2023-07-19] MEDS: Tamsulosin HCl 0.4 MG CAP PO SCH (20:18)
[2023-07-19] MEDS: diphenhydrAMINE 25 MG CAP PO PRN (20:18)
[2023-07-19] MEDS: Nicotine 14 MG PATCH TD SCH (20:20)
[2023-07-20] MEDS: Morphine 4 MG/ML VIAL SLOW IVP PRN ×3 (00:32→21:24)
[2023-07-20] MEDS: Acetaminophen/Codeine 30-300mg Tablet PO PRN ×3 (01:47→19:45)
[2023-07-20] MEDS: traMADol HCl 50 MG TAB PO PRN ×2 (01:48→19:45)
[2023-07-20 04:47] LABS: Hematocrit 39.1 % (42.0-52.0); Hemoglobin 11.4 g/dL (14.0-18.0)
[2023-07-20 05:20] LABS: Anion Gap 19 mmol/L (10-20); BUN (Urea Nitrogen) 17 mg/dL (8.4-25.7); Calc. Creatinine Clearance 66 mL/min (70-130); Calcium 9.5 mg/dL (7.8-10.44); Carbon Dioxide 21 mmol/L (23-31); Chloride 113 mmol/L (98-107); Estimated GFR 93; Glucose 77 mg/dL (83-110); Potassium 3.9 mmol/L (3.5-5.1); Sodium 149 mmol/L (136-145)
[2023-07-20] MEDS: Cyanocobalamin (Vitamin B-12) 1,000 MCG TAB PO SCH (09:54)
[2023-07-20] MEDS: Folic Acid 1 MG TAB PO SCH (09:54)
[2023-07-20] MEDS: Polyethylene Glycol 3350 17 GM Packet PO SCH (09:54)
[2023-07-20] MEDS: Senokot S 8.6-50 MG TAB PO SCH ×2 (09:55→19:44)
[2023-07-20] MEDS: Finasteride 5 MG TAB PO SCH (09:55)
[2023-07-20] MEDS: Thiamine 100 MG TAB PO SCH (09:55)
[2023-07-20] MEDS: Lisinopril 20 MG TAB PO SCH (09:55)
[2023-07-20] MEDS: Cholecalciferol 1,000 UNITS (25 MCG) TAB PO SCH (09:55)
[2023-07-20] MEDS: Venlafaxine HCl XR 150 MG CAP PO SCH (09:56)
[2023-07-20] MEDS: Isosorbide Mononitrate 30 MG ER.TAB PO SCH (09:56)
[2023-07-20] MEDS: DULoxetine 30 MG CAP PO SCH (09:56)
[2023-07-20] MEDS: Gabapentin 100 MG CAP PO SCH ×3 (09:56→19:44)
[2023-07-20] MEDS: Ranolazine 500 MG ER.TAB PO SCH ×2 (09:56→19:45)
[2023-07-20] MEDS: Insulin Glargine 30 UNITS/0.3 ML VIAL SC SCH ×2 (09:57→10:30)
[2023-07-20] MEDS: Morphine 2 MG/ML VIAL SLOW IVP PRN (10:27)
[2023-07-20] MEDS ORDERED: Dextrose 5 %-0.45 % NaCl 1,000 ML IV SCH (15:30)
[2023-07-20] MEDS: HumaLOG 300 UNITS/3 ML VIAL SC PRN (18:04)
[2023-07-20] MEDS: Nicotine 14 MG PATCH TD SCH (19:43)
[2023-07-20] MEDS: Atorvastatin Calcium 40 MG TAB PO SCH (19:44)
[2023-07-20] MEDS: diphenhydrAMINE 25 MG CAP PO PRN (19:44)
[2023-07-20] MEDS: Tamsulosin HCl 0.4 MG CAP PO SCH (19:44)
[2023-07-20] MEDS ORDERED: Insulin Glargine 30 UNITS/0.3 ML VIAL SC SCH (21:00)
[2023-07-21] MEDS: Morphine 4 MG/ML VIAL SLOW IVP PRN (01:04)
[2023-07-21 06:45] LABS: Anion Gap 22 mmol/L (10-20); BUN (Urea Nitrogen) 40 mg/dL (8.4-25.7); Calc. Creatinine Clearance 35 mL/min (70-130); Carbon Dioxide 19 mmol/L (23-31); Chloride 114 mmol/L (98-107); Estimated GFR 49; Glucose 138 mg/dL (83-110); Sodium 151 mmol/L (136-145)
[2023-07-21] MEDS ORDERED: Sodium Bicarbonate 150 MEQ in Dextrose 5% in Water 1,000 ML IV SCH ×2 (08:30→19:30)
[2023-07-21] MEDS: Polyethylene Glycol 3350 17 GM Packet PO SCH (09:23)
[2023-07-21] MEDS: Insulin Glargine 30 UNITS/0.3 ML VIAL SC SCH (09:25)
[2023-07-21] MEDS: Cholecalciferol 1,000 UNITS (25 MCG) TAB PO SCH (09:25)
[2023-07-21] MEDS: Thiamine 100 MG TAB PO SCH (09:26)
[2023-07-21] MEDS: Gabapentin 100 MG CAP PO SCH ×3 (09:26→21:03)
[2023-07-21] MEDS: Ranolazine 500 MG ER.TAB PO SCH ×2 (09:26→21:07)
[2023-07-21] MEDS: Cyanocobalamin (Vitamin B-12) 1,000 MCG TAB PO SCH (09:26)
[2023-07-21] MEDS: Lisinopril 20 MG TAB PO SCH (09:27)
[2023-07-21] MEDS: Isosorbide Mononitrate 30 MG ER.TAB PO SCH (09:27)
[2023-07-21] MEDS: Finasteride 5 MG TAB PO SCH (09:27)
[2023-07-21] MEDS: DULoxetine 30 MG CAP PO SCH (09:27)
[2023-07-21] MEDS: Folic Acid 1 MG TAB PO SCH (09:27)
[2023-07-21] MEDS: Senokot S 8.6-50 MG TAB PO SCH ×2 (09:28→21:02)
[2023-07-21] MEDS: Venlafaxine HCl XR 150 MG CAP PO SCH (09:30)
[2023-07-21] MEDS: HumaLOG 300 UNITS/3 ML VIAL SC PRN (12:10)
[2023-07-21] MEDS: Heparin 5,000 UNITS/ML VIAL SC SCH ×2 (14:45→21:07)
[2023-07-21] MEDS ORDERED: EPINEPHrine 1 MG/10 ML Abboject SYRINGE ONE (15:00)
[2023-07-21] MEDS ORDERED: Rocuronium Bromide 10 MG/ML (10ML VIAL) ONE (15:00)
[2023-07-21] MEDS ORDERED: Sodium Chloride 0.9% 1,000 ML IV SCH ×2 (15:00→15:15)
[2023-07-21] MEDS ORDERED: NOREPINEPHRINE 8 MG/250 ML-D5W 250 ML ONE (15:14)
[2023-07-21] MEDS ORDERED: Piperacillin/Tazobactam 3.375 GM in Sodium Chloride 0.9% 100 ML IVPB SCH ×2 (15:15→15:30)
[2023-07-21 15:17] LABS: #Basophils 0.1 thou/uL (0.0-0.2); #Eosinphils 0.1 thou/uL (0.0-0.7); #Monocytes 0.9 thou/uL (0.11-0.59); #Neutrophils 15.1 thou/uL (1.40-6.50); %Basophils 0.3 % (0.0-1.0); %Eosinophils 0.5 % (0.0-10.0); %Lymphocytes 16.1 % (21.0-51.0); %Monocytes 4.6 % (0.0-10.0); %Neutrophils 77.7 % (42.0-75.0); Hematocrit 31.6 % (42.0-52.0); Hemoglobin 9.5 g/dL (14.0-18.0); Mean Corpuscular HGB CONC 30.1 g/dL (32.0-36.0); Mean Corpuscular Hemoglobin 25.3 pg (27.0-31.0); Mean Corpuscular Volume 84.3 fl (78.0-98.0); Platelet Count 532 10x3/uL (130-400); RBC Distribution Width 23.8 % (11.5-14.5); Red Blood Cell (RBC) Count 3.75 mill/uL (4.70-6.10); White Blood Cell (WBC) Count 19.4 10x3/uL (4.8-10.8)
[2023-07-21 15:21] LABS: Actual Bicarbonate (HCO3a) 21.7 mEq/L (22-28); Base Excess (BEa) -1.3 mEq/L (-2.0 to +3.0); CO2 Tension 30.3 mmHg (35.0-45.0); Calcium, Ionized (arterial) 1.04 mmol/L (1.12-1.30); Carboxyhemoglobin (COHb) 0.5 gm% (0.0-3.0); Hematocrit-ABG 28 % (42.0-52.0); Hemoglobin (Hb) 9.5 g/dL (14.0-18.0); O2 Tension (PaO2), arterial 151.3 mmHg (> 70.0); Potassium - ABG Lab 3.64 mmol/L (3.70-5.30); pH, Arterial 7.473 (7.35-7.45)
[2023-07-21 15:23] LABS: Puncture Site RRA
[2023-07-21 15:24] LABS: ALV-art Gradient 60.375 mmHg (0-20)
[2023-07-21] MEDS ORDERED: Lactated Ringer's 1,000 ML IV SCH ×3 (15:30→17:00)
[2023-07-21] MEDS ORDERED: Vancomycin 1 GM in Premix Bag 1 BAG IVPB SCH ×2 (15:45→16:00)
[2023-07-21] MEDS ORDERED: Vancomycin Dose by Levels Sliding Scale (Wt <71) FS SCH ×2 (15:45→16:00)
[2023-07-21 15:54] LABS: Chloride 109 mmol/L (98-107); Sodium 147 mmol/L (136-145)
[2023-07-21] MEDS ORDERED: Calcium Chloride 1 GM/10 ML Abboject SYRINGE IVP SCH (16:00)
[2023-07-21 16:01] LABS: Troponin I 0.208 ng/mL (< 0.028)
[2023-07-21 16:03] LABS: Calcium 8.6 mg/dL (7.8-10.44)
[2023-07-21 16:04] LABS: Glucose 302 mg/dL (83-110)
[2023-07-21 16:05] LABS: Anion Gap 22 mmol/L (10-20); Carbon Dioxide 20 mmol/L (23-31)
[2023-07-21 16:07] LABS: Calc. Creatinine Clearance 28 mL/min (70-130); Estimated GFR 36
[2023-07-21 16:08] LABS: BUN (Urea Nitrogen) 54 mg/dL (8.4-25.7)
[2023-07-21] MEDS ORDERED: FENTANYL 500 MCG/10 ML VIAL 2,000 MCG in Sodium Chloride 0.9% 60 ML IV PRN (16:38)
[2023-07-21] MEDS ORDERED: Dexmedetomidine In 0.9 % NaCl 100 ML IVPB SCH (16:45)
[2023-07-21 16:48] LABS: Lactic Acid 3.3 mmol/L (0.5-2.2)
[2023-07-21] MEDS ORDERED: Morphine 2 MG/ML VIAL SLOW IVP PRN (17:00)
[2023-07-21] MEDS ORDERED: DISCONTINUE PREVIOUS NARCOTIC PAIN MEDICATIONS AND BENZODIAZEPINES FS SCH (17:00)
[2023-07-21] MEDS ORDERED: Fentanyl CADD 100 ML IV SCH (17:00)
[2023-07-21] MEDS ORDERED: Lorazepam 2 MG/ML VIAL SLOW IVP PRN (17:00)
[2023-07-21] MEDS ORDERED: Fentanyl BOLUS 250 ML IVPB PRN (17:00)
[2023-07-21] MEDS ORDERED: Insulin Glargine 30 UNITS/0.3 ML VIAL SC SCH ×2 (17:28)
[2023-07-21 17:45] LABS: Bacteria/HPF 1+ HPF (None Seen); Bilirubin Negative (Negative); Blood, Urine 3+ (Negative); CAUTI Indications for Culture Alt mental st,lethar; Clarity Clear (Clear); Glucose, Urine (Dipstick) 70 mg/dL (Negative); Ketone, Urine Trace mg/dL (Negative); Leukocyte Negative Leu/uL (Negative); Nitrite Negative (Negative); Protein, Urine (Dipstick) 20 mg/dL (Neg-Trace); RBC/HPF 0-3 HPF (0-3); Specific Gravity, Urine 1.013 (1.002-1.036); Squamous Epithelial 0-3 HPF (0-3); Urobilinogen Normal mg/dL (Less than 2); WBC/HPF 0-3 HPF (0-3); pH, Urine 5.5 (5.0-9.0)
[2023-07-21] MEDS ORDERED: Glucagon 1 MG/ML KIT IM PRN (17:45)
[2023-07-21] MEDS ORDERED: Dextrose 5% in Water 1,000 ML IV PRN (17:45)
[2023-07-21] MEDS ORDERED: Dextrose 50% Abboject 50 ML SYRINGE IVP PRN (17:45)
[2023-07-21 17:46] LABS: Urine Culture Reflex No No
[2023-07-21 18:52] LABS: #Eosinphils 0.1 thou/uL (0.0-0.7); #Monocytes 1.2 thou/uL (0.11-0.59); #Neutrophils 18.4 thou/uL (1.40-6.50); %Basophils 0.2 % (0.0-1.0); %Eosinophils 0.3 % (0.0-10.0); %Lymphocytes 8.5 % (21.0-51.0); %Monocytes 5.6 % (0.0-10.0); %Neutrophils 84.5 % (42.0-75.0); Hematocrit 24.1 % (42.0-52.0); Hemoglobin 7.3 g/dL (14.0-18.0); Mean Corpuscular HGB CONC 30.3 g/dL (32.0-36.0); Mean Corpuscular Hemoglobin 25.5 pg (27.0-31.0); Mean Corpuscular Volume 84.3 fl (78.0-98.0); Mean Platelet Volume 11.2 fL (7.4-10.4); Platelet Count 482 10x3/uL (130-400); RBC Distribution Width 23.6 % (11.5-14.5); Red Blood Cell (RBC) Count 2.86 mill/uL (4.70-6.10); White Blood Cell (WBC) Count 21.8 10x3/uL (4.8-10.8)
[2023-07-21] MEDS ORDERED: Fentanyl CADD 100 ML ONE (19:01)
[2023-07-21 19:29] LABS: Troponin I 0.323 ng/mL (< 0.028)
[2023-07-21 19:30] LABS: Glucose 464 mg/dL (83-110)
[2023-07-21 19:31] LABS: Anion Gap 17 mmol/L (10-20); BUN (Urea Nitrogen) 39 mg/dL (8.4-25.7); Calc. Creatinine Clearance 33 mL/min (70-130); Carbon Dioxide 19 mmol/L (23-31); Chloride 108 mmol/L (98-107); Estimated GFR 45; Magnesium 1.8 mg/dL (1.6-2.6); Phosphorus 2.9 mg/dL (2.3-4.7); Potassium 3.9 mmol/L (3.5-5.1); Sodium 140 mmol/L (136-145)
[2023-07-21 19:33] LABS: Calcium 7.3 mg/dL (7.8-10.44)
[2023-07-21] MEDS ORDERED: Insulin Regular 300 UNITS/3 ML VIAL SC SCH (20:30)
[2023-07-21] MEDS: Sodium Chloride 0.9% 1,000 ML IV SCH (20:50)
[2023-07-21] MEDS: Tamsulosin HCl 0.4 MG CAP PO SCH (21:01)
[2023-07-21] MEDS: Atorvastatin Calcium 40 MG TAB PO SCH (21:02)
[2023-07-21] MEDS: Piperacillin/Tazobactam 3.375 GM in Sodium Chloride 0.9% 100 ML IVPB SCH (21:08)
[2023-07-21] MEDS: Nicotine 14 MG PATCH TD SCH (21:13)
[2023-07-21] MEDS ORDERED: NOREPINEPHRINE 8 MG/250 ML-D5W 250 ML IVPB SCH (21:15)
[2023-07-22] MEDS: Sodium Chloride 0.9% 1,000 ML IV SCH (04:09)
[2023-07-22] MEDS: Piperacillin/Tazobactam 3.375 GM in Sodium Chloride 0.9% 100 ML IVPB SCH ×3 (04:49→20:33)
[2023-07-22 05:15] LABS: #Basophils 0.1 thou/uL (0.0-0.2); #Eosinphils 0.2 thou/uL (0.0-0.7); #Neutrophils 14.8 thou/uL (1.40-6.50); %Basophils 0.3 % (0.0-1.0); %Eosinophils 0.9 % (0.0-10.0); %Lymphocytes 6.9 % (21.0-51.0); %Monocytes 5.9 % (0.0-10.0); %Neutrophils 85.3 % (42.0-75.0); Hematocrit 24.7 % (42.0-52.0); Hemoglobin 7.2 g/dL (14.0-18.0); Mean Corpuscular HGB CONC 29.1 g/dL (32.0-36.0); Mean Corpuscular Hemoglobin 24.6 pg (27.0-31.0); Mean Corpuscular Volume 84.3 fl (78.0-98.0); Mean Platelet Volume 11.9 fL (7.4-10.4); Platelet Count 399 10x3/uL (130-400); Red Blood Cell (RBC) Count 2.93 mill/uL (4.70-6.10); White Blood Cell (WBC) Count 17.4 10x3/uL (4.8-10.8)
[2023-07-22 05:37] LABS: Lactic Acid 2.3 mmol/L (0.5-2.2)
[2023-07-22 05:44] LABS: Anion Gap 14 mmol/L (10-20); BUN (Urea Nitrogen) 27 mg/dL (8.4-25.7); Calc. Creatinine Clearance 39 mL/min (70-130); Calcium 7.3 mg/dL (7.8-10.44); Carbon Dioxide 22 mmol/L (23-31); Chloride 119 mmol/L (98-107); Estimated GFR 72; Glucose 65 mg/dL (83-110); Magnesium 1.9 mg/dL (1.6-2.6); Phosphorus 2.1 mg/dL (2.3-4.7); Potassium 3.3 mmol/L (3.5-5.1); Sodium 152 mmol/L (136-145)
[2023-07-22] MEDS ORDERED: Lactated Ringer's 1,000 ML IV SCH (07:00)
[2023-07-22] MEDS ORDERED: Dextrose 10% in Water 250 ML IV SCH ×2 (07:00)
[2023-07-22 07:20] LABS: Actual Bicarbonate (HCO3a) 22.5 mEq/L (22-28); CO2 Tension 32.8 mmHg (35.0-45.0); Calcium, Ionized (arterial) 1.05 mmol/L (1.12-1.30); Carboxyhemoglobin (COHb) 0.2 gm% (0.0-3.0); Hematocrit-ABG 26 % (42.0-52.0); Hemoglobin (Hb) 8.7 g/dL (14.0-18.0); O2 Tension (PaO2), arterial 138.8 mmHg (> 70.0); Potassium - ABG Lab 3.33 mmol/L (3.70-5.30); pH, Arterial 7.455 (7.35-7.45)
[2023-07-22 07:22] LABS: Puncture Site RRA
[2023-07-22] MEDS ORDERED: Potassium Chloride 20 MEQ in Premix Bag 1 BAG IVPB SCH (07:30)
[2023-07-22] MEDS ORDERED: Magnesium 2 GM/50 ML(in water) 2 GM in Premix Bag 1 BAG IVPB SCH (07:30)
[2023-07-22] MEDS ORDERED: Calcium Chloride 1 GM/10 ML Abboject SYRINGE IVP SCH (07:45)
[2023-07-22] MEDS ORDERED: Dextrose 50% Abboject 50 ML SYRINGE SLOW IVP PRN (07:51)
[2023-07-22] MEDS: Dexmedetomidine 400 MCG, Admixture Fee 1 EACH in Sodium Chloride 0.9% 96 ML IVPB SCH (08:36)
[2023-07-22] MEDS: Lisinopril 20 MG TAB PO SCH (09:28)
[2023-07-22] MEDS: D5 1/2 NS w/10 mEq KCl 1,000 ML/1,000 ML BAG IV SCH ×2 (09:30→19:30)
[2023-07-22] MEDS: Cyanocobalamin (Vitamin B-12) 1,000 MCG TAB PO SCH (09:31)
[2023-07-22] MEDS: DULoxetine 30 MG CAP PO SCH (09:31)
[2023-07-22] MEDS: Gabapentin 100 MG CAP PO SCH ×3 (09:32→20:35)
[2023-07-22] MEDS: Senokot S 8.6-50 MG TAB PO SCH ×2 (09:32→20:36)
[2023-07-22] MEDS: Cholecalciferol 1,000 UNITS (25 MCG) TAB PO SCH (09:32)
[2023-07-22] MEDS: Polyethylene Glycol 3350 17 GM Packet PO SCH (09:33)
[2023-07-22] MEDS: Folic Acid 1 MG TAB PO SCH (09:34)
[2023-07-22] MEDS: Finasteride 5 MG TAB PO SCH (09:34)
[2023-07-22] MEDS: Isosorbide Mononitrate 30 MG ER.TAB PO SCH (09:35)
[2023-07-22] MEDS: Thiamine 100 MG TAB PO SCH (09:35)
[2023-07-22] MEDS: Ranolazine 500 MG ER.TAB PO SCH ×2 (09:36→20:36)
[2023-07-22] MEDS: Heparin 5,000 UNITS/ML VIAL SC SCH ×3 (09:36→20:33)
[2023-07-22] MEDS: Venlafaxine HCl XR 150 MG CAP PO SCH (09:36)
[2023-07-22] MEDS: Insulin Glargine 30 UNITS/0.3 ML VIAL SC SCH ×2 (09:39→20:33)
[2023-07-22] MEDS ORDERED: Acetaminophen 650 MG Suppository PR PRN (15:19)
[2023-07-22 16:24] LABS: Anion Gap 16 mmol/L (10-20); BUN (Urea Nitrogen) 19 mg/dL (8.4-25.7); Calc. Creatinine Clearance 42 mL/min (70-130); Calcium 8.4 mg/dL (7.8-10.44); Carbon Dioxide 19 mmol/L (23-31); Chloride 116 mmol/L (98-107); Estimated GFR 78; Glucose 249 mg/dL (83-110); Sodium 147 mmol/L (136-145)
[2023-07-22] MEDS: HumaLOG 300 UNITS/3 ML VIAL SC PRN (16:45)
[2023-07-22] MEDS: Vancomycin HCl 750 MG in Sodium Chloride 0.9% 250 ML 250 ML IVPB SCH (17:57)
[2023-07-22] MEDS: Atorvastatin Calcium 40 MG TAB PO SCH (20:35)
[2023-07-22] MEDS: Tamsulosin HCl 0.4 MG CAP PO SCH (20:36)
[2023-07-22] MEDS: Nicotine 14 MG PATCH TD SCH (20:38)
[2023-07-23] MEDS: HumaLOG 300 UNITS/3 ML VIAL SC PRN ×2 (01:43→21:11)
[2023-07-23] MEDS: D5 1/2 NS w/10 mEq KCl 1,000 ML/1,000 ML BAG IV SCH (04:01)
[2023-07-23] MEDS: Piperacillin/Tazobactam 3.375 GM in Sodium Chloride 0.9% 100 ML IVPB SCH ×3 (04:04→20:54)
[2023-07-23 05:18] LABS: #Neutrophils 13.4 thou/uL (1.40-6.50); %Basophils 0.2 % (0.0-1.0); %Eosinophils 0.3 % (0.0-10.0); %Lymphocytes 8.9 % (21.0-51.0); %Monocytes 6.1 % (0.0-10.0); %Neutrophils 83.9 % (42.0-75.0); Hematocrit 23.1 % (42.0-52.0); Hemoglobin 6.9 g/dL (14.0-18.0); Mean Corpuscular HGB CONC 29.9 g/dL (32.0-36.0); Mean Corpuscular Hemoglobin 25.4 pg (27.0-31.0); Mean Corpuscular Volume 84.9 fl (78.0-98.0); Mean Platelet Volume 11.6 fL (7.4-10.4); Platelet Count 362 10x3/uL (130-400); RBC Distribution Width 22.8 % (11.5-14.5); Red Blood Cell (RBC) Count 2.72 mill/uL (4.70-6.10); White Blood Cell (WBC) Count 15.9 10x3/uL (4.8-10.8)
[2023-07-23] MEDS: Vancomycin HCl 750 MG in Sodium Chloride 0.9% 250 ML 250 ML IVPB SCH (06:41)
[2023-07-23 07:19] LABS: Anion Gap 12 mmol/L (10-20); Carbon Dioxide 22 mmol/L (23-31); Chloride 118 mmol/L (98-107); Glucose 141 mg/dL (83-110); Phosphorus 1.9 mg/dL (2.3-4.7); Potassium 3.4 mmol/L (3.5-5.1); Sodium 149 mmol/L (136-145)
[2023-07-23 07:20] LABS: BUN (Urea Nitrogen) 16 mg/dL (8.4-25.7); Calc. Creatinine Clearance 48 mL/min (70-130); Estimated GFR 90; Magnesium 1.6 mg/dL (1.6-2.6)
[2023-07-23] MEDS ORDERED: Potassium Phosphate 30 MMOL, Magnesium Sulfate 4 GM in Sodium Chloride 0.9% 250 ML 250 ML IVPB SCH (08:15)
[2023-07-23 08:56] LABS: Troponin I 0.485 ng/mL (< 0.028)
[2023-07-23] MEDS: Cyanocobalamin (Vitamin B-12) 1,000 MCG TAB PO SCH (09:08)
[2023-07-23] MEDS: Finasteride 5 MG TAB PO SCH (09:08)
[2023-07-23] MEDS: Folic Acid 1 MG TAB PO SCH (09:08)
[2023-07-23] MEDS: Cholecalciferol 1,000 UNITS (25 MCG) TAB PO SCH (09:08)
[2023-07-23] MEDS: DULoxetine 30 MG CAP PO SCH (09:08)
[2023-07-23] MEDS: Gabapentin 100 MG CAP PO SCH (09:08)
[2023-07-23] MEDS: Isosorbide Mononitrate 30 MG ER.TAB PO SCH (09:09)
[2023-07-23] MEDS: Polyethylene Glycol 3350 17 GM Packet PO SCH (09:09)
[2023-07-23] MEDS: Insulin Glargine 30 UNITS/0.3 ML VIAL SC SCH ×2 (09:09→20:55)
[2023-07-23] MEDS: Senokot S 8.6-50 MG TAB PO SCH ×2 (09:09→20:56)
[2023-07-23] MEDS: Ranolazine 500 MG ER.TAB PO SCH ×2 (09:09→20:56)
[2023-07-23] MEDS: Thiamine 100 MG TAB PO SCH (09:09)
[2023-07-23] MEDS: Venlafaxine HCl XR 150 MG CAP PO SCH (09:10)
[2023-07-23] MEDS ORDERED: Electrolyte Replacement Protocol FS PRN (11:15)
[2023-07-23] MEDS ORDERED: Electrolyte Replacement Protocol 1 EACH FS SCH (11:15)
[2023-07-23] MEDS ORDERED: Dextrose 5%-Lactated Ringers 1,000 ML IV SCH (11:15)
[2023-07-23] MEDS ORDERED: Magnesium 2 GM/50 ML(in water) 2 GM in Premix Bag 1 BAG IVPB SCH (12:00)
[2023-07-23] MEDS ORDERED: Furosemide 20 MG/2 ML VIAL SLOW IVP SCH (12:00)
[2023-07-23] MEDS: Dextrose 5%-Lactated Ringers 1,000 ML IV SCH (12:20)
[2023-07-23 14:19] LABS: Hematocrit 29.2 % (42.0-52.0); Hemoglobin 9.2 g/dL (14.0-18.0); Platelet Count 448 10x3/uL (130-400)
[2023-07-23] MEDS: Dexmedetomidine 400 MCG, Admixture Fee 1 EACH in Sodium Chloride 0.9% 96 ML IVPB SCH (17:07)
[2023-07-23 19:53] LABS: Potassium 2.8 mmol/L (3.5-5.1)
[2023-07-23] MEDS: Nicotine 14 MG PATCH TD SCH (20:54)
[2023-07-23] MEDS: Potassium Chloride 20 MEQ in Premix Bag 1 BAG IVPB SCH ×2 (20:54→22:28)
[2023-07-23] MEDS: Atorvastatin Calcium 40 MG TAB PO SCH (20:56)
[2023-07-23] MEDS: Tamsulosin HCl 0.4 MG CAP PO SCH (20:56)
[2023-07-23] MEDS: Morphine 2 MG/ML VIAL SLOW IVP PRN (22:41)
[2023-07-24] MEDS: Potassium Chloride 20 MEQ in Premix Bag 1 BAG IVPB SCH ×2 (00:35→02:13)
[2023-07-24] MEDS: Piperacillin/Tazobactam 3.375 GM in Sodium Chloride 0.9% 100 ML IVPB SCH ×3 (04:33→20:06)
[2023-07-24 04:34] LABS: #Monocytes 0.6 thou/uL (0.11-0.59); #Neutrophils 11.6 thou/uL (1.40-6.50); %Basophils 0.1 % (0.0-1.0); %Eosinophils 0.1 % (0.0-10.0); %Lymphocytes 8.2 % (21.0-51.0); %Monocytes 4.4 % (0.0-10.0); %Neutrophils 86.3 % (42.0-75.0); Hematocrit 25.1 % (42.0-52.0); Hemoglobin 7.8 g/dL (14.0-18.0); Mean Corpuscular HGB CONC 31.1 g/dL (32.0-36.0); Mean Corpuscular Hemoglobin 25.5 pg (27.0-31.0); Mean Platelet Volume 11.6 fL (7.4-10.4); Platelet Count 350 10x3/uL (130-400); RBC Distribution Width 21.7 % (11.5-14.5); Red Blood Cell (RBC) Count 3.06 mill/uL (4.70-6.10); White Blood Cell (WBC) Count 13.5 10x3/uL (4.8-10.8)
[2023-07-24 05:03] LABS: ALT (SGPT) 102 U/L (8-55); AST (SGOT) 259 U/L (5-34); Albumin 2.5 g/dL (3.4-4.8); Alkaline Phosphatase 98 U/L (40-110); Anion Gap 14 mmol/L (10-20); BUN (Urea Nitrogen) 17 mg/dL (8.4-25.7); Bilirubin, Total 0.8 mg/dL (0.2-1.2); Calc. Creatinine Clearance 50 mL/min (70-130); Calcium 7.6 mg/dL (7.8-10.44); Carbon Dioxide 22 mmol/L (23-31); Chloride 117 mmol/L (98-107); Estimated GFR 91; Globulin 2.7 g/dL (2.4-3.5); Glucose 159 mg/dL (83-110); Potassium 4.2 mmol/L (3.5-5.1); Protein, Total 5.2 g/dL (5.8-8.1); Sodium 149 mmol/L (136-145)
[2023-07-24 05:05] LABS: Vancomycin, Trough 6.5 ug/mL
[2023-07-24] MEDS: Morphine 2 MG/ML VIAL SLOW IVP PRN (05:40)
[2023-07-24 07:03] LABS: Potassium 4.3 mmol/L (3.5-5.1)
[2023-07-24] MEDS ORDERED: Furosemide 20 MG/2 ML VIAL SLOW IVP SCH (08:15)
[2023-07-24] MEDS: Dextrose 5%-Lactated Ringers 1,000 ML IV SCH (08:39)
[2023-07-24] MEDS: HumaLOG 300 UNITS/3 ML VIAL SC PRN ×3 (09:04→16:43)
[2023-07-24] MEDS: Insulin Glargine 30 UNITS/0.3 ML VIAL SC SCH (09:04)
[2023-07-24] MEDS: Cholecalciferol 1,000 UNITS (25 MCG) TAB PO SCH (10:19)
[2023-07-24] MEDS: Cyanocobalamin (Vitamin B-12) 1,000 MCG TAB PO SCH (10:19)
[2023-07-24] MEDS: Thiamine 100 MG TAB PO SCH (10:20)
[2023-07-24] MEDS: Senokot S 8.6-50 MG TAB PO SCH ×2 (10:20→20:06)
[2023-07-24] MEDS: Folic Acid 1 MG TAB PO SCH (10:20)
[2023-07-24] MEDS: Venlafaxine HCl XR 150 MG CAP PO SCH (10:20)
[2023-07-24] MEDS: DULoxetine 30 MG CAP PO SCH (10:21)
[2023-07-24] MEDS: Finasteride 5 MG TAB PO SCH (10:21)
[2023-07-24] MEDS: Isosorbide Mononitrate 30 MG ER.TAB PO SCH (10:21)
[2023-07-24] MEDS: Ranolazine 500 MG ER.TAB PO SCH ×2 (10:22→20:06)
[2023-07-24] MEDS: Polyethylene Glycol 3350 17 GM Packet PO SCH (10:22)
[2023-07-24] MEDS ORDERED: Dextrose 5%-Lactated Ringers 1,000 ML IV SCH (13:30)
[2023-07-24] MEDS ORDERED: Iopamidol-370 76% 500 ML MDV (1 ML CHARGE) ONE (15:51)
[2023-07-24 18:38] LABS: Activated Protein C Resistance 2.5 ratio (.)
[2023-07-24] MEDS: Tamsulosin HCl 0.4 MG CAP PO SCH (20:06)
[2023-07-24] MEDS: Atorvastatin Calcium 40 MG TAB PO SCH (20:06)
[2023-07-24] MEDS: Nicotine 14 MG PATCH TD SCH (20:07)
[2023-07-24] MEDS: Dexmedetomidine 400 MCG, Admixture Fee 1 EACH in Sodium Chloride 0.9% 96 ML IVPB SCH (20:17)
[2023-07-24] MEDS ORDERED: Insulin Glargine 30 UNITS/0.3 ML VIAL SC SCH (21:00)
[2023-07-25 04:36] LABS: #Eosinphils 0.1 thou/uL (0.0-0.7); #Monocytes 0.6 thou/uL (0.11-0.59); #Neutrophils 13.5 thou/uL (1.40-6.50); %Basophils 0.1 % (0.0-1.0); %Eosinophils 0.9 % (0.0-10.0); %Lymphocytes 7.5 % (21.0-51.0); %Monocytes 3.7 % (0.0-10.0); %Neutrophils 86.8 % (42.0-75.0); Hematocrit 26.4 % (42.0-52.0); Hemoglobin 8.3 g/dL (14.0-18.0); Mean Corpuscular HGB CONC 31.4 g/dL (32.0-36.0); Mean Corpuscular Hemoglobin 25.9 pg (27.0-31.0); Mean Corpuscular Volume 82.5 fl (78.0-98.0); Mean Platelet Volume 11.4 fL (7.4-10.4); Platelet Count 382 10x3/uL (130-400); RBC Distribution Width 22.4 % (11.5-14.5); White Blood Cell (WBC) Count 15.5 10x3/uL (4.8-10.8)
[2023-07-25 05:02] LABS: ALT (SGPT) 97 U/L (8-55); AST (SGOT) 191 U/L (5-34); Albumin 2.5 g/dL (3.4-4.8); Alkaline Phosphatase 103 U/L (40-110); Anion Gap 14 mmol/L (10-20); BUN (Urea Nitrogen) 19 mg/dL (8.4-25.7); Bilirubin, Total 0.9 mg/dL (0.2-1.2); Calc. Creatinine Clearance 51 mL/min (70-130); Calcium 8.2 mg/dL (7.8-10.44); Carbon Dioxide 25 mmol/L (23-31); Chloride 117 mmol/L (98-107); Estimated GFR 92; Globulin 2.9 g/dL (2.4-3.5); Glucose 158 mg/dL (83-110); Potassium 3.2 mmol/L (3.5-5.1); Protein, Total 5.4 g/dL (5.8-8.1)
[2023-07-25 05:04] LABS: Sodium 153 mmol/L (136-145)
[2023-07-25] MEDS: Piperacillin/Tazobactam 3.375 GM in Sodium Chloride 0.9% 100 ML IVPB SCH ×3 (05:29→20:25)
[2023-07-25] MEDS: Sodium Chloride 0.45% 1,000 ML IV SCH ×2 (05:49→17:12)
[2023-07-25] MEDS: Polyethylene Glycol 3350 17 GM Packet PO SCH (09:26)
[2023-07-25] MEDS: Ranolazine 500 MG ER.TAB PO SCH ×2 (09:26→20:31)
[2023-07-25] MEDS: Cyanocobalamin (Vitamin B-12) 1,000 MCG TAB PO SCH (09:27)
[2023-07-25] MEDS: Ascorbic Acid 500 mg Chewable Tablet PO SCH (09:27)
[2023-07-25] MEDS: Senokot S 8.6-50 MG TAB PO SCH ×2 (09:27→20:31)
[2023-07-25] MEDS: Folic Acid 1 MG TAB PO SCH (09:27)
[2023-07-25] MEDS: Cholecalciferol 1,000 UNITS (25 MCG) TAB PO SCH (09:27)
[2023-07-25] MEDS: Ferrous Sulfate 325 MG TAB PO SCH ×2 (09:28→17:11)
[2023-07-25] MEDS: Finasteride 5 MG TAB PO SCH (09:28)
[2023-07-25] MEDS: DULoxetine 30 MG CAP PO SCH (09:28)
[2023-07-25] MEDS: Isosorbide Mononitrate 30 MG ER.TAB PO SCH (09:28)
[2023-07-25] MEDS: Thiamine 100 MG TAB PO SCH (09:28)
[2023-07-25] MEDS: Venlafaxine HCl XR 150 MG CAP PO SCH (09:28)
[2023-07-25] MEDS: Potassium Chloride 20 MEQ in Premix Bag 1 BAG IVPB SCH ×3 (09:31→17:11)
[2023-07-25] MEDS: Insulin Glargine 30 UNITS/0.3 ML VIAL SC SCH ×2 (09:46→20:31)
[2023-07-25 12:28] LABS: ALT (SGPT) 96 U/L (8-55); AST (SGOT) 196 U/L (5-34); Albumin 2.4 g/dL (3.4-4.8); Alkaline Phosphatase 106 U/L (40-110); Anion Gap 13 mmol/L (10-20); BUN (Urea Nitrogen) 19 mg/dL (8.4-25.7); Bilirubin, Total 0.7 mg/dL (0.2-1.2); Calc. Creatinine Clearance 50 mL/min (70-130); Calcium 7.8 mg/dL (7.8-10.44); Carbon Dioxide 23 mmol/L (23-31); Chloride 115 mmol/L (98-107); Estimated GFR 91; Globulin 2.6 g/dL (2.4-3.5); Glucose 248 mg/dL (83-110); Potassium 3.1 mmol/L (3.5-5.1); Sodium 148 mmol/L (136-145)
[2023-07-25] MEDS: Dexmedetomidine 400 MCG, Admixture Fee 1 EACH in Sodium Chloride 0.9% 96 ML IVPB SCH (13:24)
[2023-07-25] MEDS: Nicotine 14 MG PATCH TD SCH (20:25)
[2023-07-25] MEDS: Tamsulosin HCl 0.4 MG CAP PO SCH (20:31)
[2023-07-25] MEDS: Atorvastatin Calcium 40 MG TAB PO SCH (20:31)
[2023-07-26 00:42] LABS: Potassium 3.1 mmol/L (3.5-5.1)
[2023-07-26] MEDS ORDERED: Potassium Chloride 20 MEQ TAB PO SCH ×2 (01:30→21:00)
[2023-07-26] MEDS: Sodium Chloride 0.45% 1,000 ML IV SCH (01:49)
[2023-07-26 04:19] LABS: #Eosinphils 0.1 thou/uL (0.0-0.7); #Monocytes 0.5 thou/uL (0.11-0.59); #Neutrophils 9.7 thou/uL (1.40-6.50); %Basophils 0.1 % (0.0-1.0); %Eosinophils 0.9 % (0.0-10.0); %Lymphocytes 10.1 % (21.0-51.0); %Monocytes 4.1 % (0.0-10.0); %Neutrophils 84.3 % (42.0-75.0); Hematocrit 24.1 % (42.0-52.0); Hemoglobin 7.5 g/dL (14.0-18.0); Mean Corpuscular HGB CONC 31.1 g/dL (32.0-36.0); Mean Corpuscular Hemoglobin 25.6 pg (27.0-31.0); Mean Corpuscular Volume 82.3 fl (78.0-98.0); Mean Platelet Volume 11.5 fL (7.4-10.4); Platelet Count 388 10x3/uL (130-400); RBC Distribution Width 21.7 % (11.5-14.5); Red Blood Cell (RBC) Count 2.93 mill/uL (4.70-6.10); White Blood Cell (WBC) Count 11.5 10x3/uL (4.8-10.8)
[2023-07-26 04:48] LABS: ALT (SGPT) 91 U/L (8-55); AST (SGOT) 173 U/L (5-34); Albumin 2.3 g/dL (3.4-4.8); Alkaline Phosphatase 97 U/L (40-110); Anion Gap 12 mmol/L (10-20); BUN (Urea Nitrogen) 14 mg/dL (8.4-25.7); Bilirubin, Total 0.8 mg/dL (0.2-1.2); Calc. Creatinine Clearance 58 mL/min (70-130); Calcium 7.4 mg/dL (7.8-10.44); Carbon Dioxide 21 mmol/L (23-31); Chloride 116 mmol/L (98-107); Estimated GFR 95; Globulin 2.6 g/dL (2.4-3.5); Glucose 91 mg/dL (83-110); Potassium 3.2 mmol/L (3.5-5.1); Protein, Total 4.9 g/dL (5.8-8.1); Sodium 146 mmol/L (136-145)
[2023-07-26] MEDS: Piperacillin/Tazobactam 3.375 GM in Sodium Chloride 0.9% 100 ML IVPB SCH ×3 (05:29→20:28)
[2023-07-26] MEDS: Dexmedetomidine 400 MCG, Admixture Fee 1 EACH in Sodium Chloride 0.9% 96 ML IVPB SCH (07:55)
[2023-07-26] MEDS: Folic Acid 1 MG TAB PO SCH (08:01)
[2023-07-26] MEDS: NIFEdipine XL 30 MG ER.TAB PO SCH (08:01)
[2023-07-26] MEDS: Ferrous Sulfate 325 MG TAB PO SCH ×2 (08:02→18:31)
[2023-07-26] MEDS: Thiamine 100 MG TAB PO SCH (08:02)
[2023-07-26] MEDS: Ranolazine 500 MG ER.TAB PO SCH ×2 (08:02→20:26)
[2023-07-26] MEDS: Isosorbide Mononitrate 30 MG ER.TAB PO SCH (08:02)
[2023-07-26] MEDS: Venlafaxine HCl XR 150 MG CAP PO SCH (08:02)
[2023-07-26] MEDS: Insulin Glargine 30 UNITS/0.3 ML VIAL SC SCH ×3 (08:02→20:26)
[2023-07-26] MEDS: Cholecalciferol 1,000 UNITS (25 MCG) TAB PO SCH (08:02)
[2023-07-26] MEDS: Finasteride 5 MG TAB PO SCH (08:03)
[2023-07-26] MEDS: DULoxetine 30 MG CAP PO SCH (08:03)
[2023-07-26] MEDS: Ascorbic Acid 500 mg Chewable Tablet PO SCH (08:03)
[2023-07-26] MEDS: Spironolactone 25 MG TAB PO SCH (08:03)
[2023-07-26] MEDS: Cyanocobalamin (Vitamin B-12) 1,000 MCG TAB PO SCH (08:03)
[2023-07-26] MEDS: Polyethylene Glycol 3350 17 GM Packet PO SCH (08:04)
[2023-07-26] MEDS: Senokot S 8.6-50 MG TAB PO SCH ×2 (08:04→20:29)
[2023-07-26 08:52] VITALS: BMI 17.8
[2023-07-26] MEDS ORDERED: Gabapentin 100 MG CAP PO SCH (11:30)
[2023-07-26] MEDS: Saccharomyces boulardii 250 MG CAP PO SCH (15:08)
[2023-07-26] MEDS ORDERED: Electrolyte Replacement Protocol FS PRN (18:53)
[2023-07-26] MEDS ORDERED: Amino Acids 4.25 %/Dextrose 5% 1,000 ML IV SCH (20:00)
[2023-07-26] MEDS: Atorvastatin Calcium 40 MG TAB PO SCH (20:26)
[2023-07-26] MEDS: Gabapentin 100 MG CAP PO SCH (20:27)
[2023-07-26] MEDS: Tamsulosin HCl 0.4 MG CAP PO SCH (20:28)
[2023-07-26] MEDS: Nicotine 14 MG PATCH TD SCH (20:28)
[2023-07-26] MEDS: D5W-AA 4.25% with LYTES 1,000 ML IV SCH (20:29)
[2023-07-27] MEDS: HumaLOG 300 UNITS/3 ML VIAL SC PRN ×4 (01:16→20:36)
[2023-07-27 04:26] LABS: Magnesium 1.8 mg/dL (1.6-2.6); Phosphorus 2.5 mg/dL (2.3-4.7); Potassium 3.5 mmol/L (3.5-5.1)
[2023-07-27] MEDS: Piperacillin/Tazobactam 3.375 GM in Sodium Chloride 0.9% 100 ML IVPB SCH ×3 (05:08→20:33)
[2023-07-27] MEDS ORDERED: Magnesium 2 GM/50 ML(in water) 2 GM in Premix Bag 1 BAG IVPB SCH (08:00)
[2023-07-27] MEDS: NIFEdipine XL 30 MG ER.TAB PO SCH (08:45)
[2023-07-27] MEDS: Venlafaxine HCl XR 150 MG CAP PO SCH (08:45)
[2023-07-27] MEDS: Folic Acid 1 MG TAB PO SCH (08:45)
[2023-07-27] MEDS: Cholecalciferol 1,000 UNITS (25 MCG) TAB PO SCH (08:45)
[2023-07-27] MEDS: Ranolazine 500 MG ER.TAB PO SCH ×2 (08:45→20:35)
[2023-07-27] MEDS: Insulin Glargine 30 UNITS/0.3 ML VIAL SC SCH (08:46)
[2023-07-27] MEDS: Thiamine 100 MG TAB PO SCH (08:46)
[2023-07-27] MEDS: Finasteride 5 MG TAB PO SCH (08:46)
[2023-07-27] MEDS: Spironolactone 25 MG TAB PO SCH (08:47)
[2023-07-27] MEDS: Cyanocobalamin (Vitamin B-12) 1,000 MCG TAB PO SCH (08:47)
[2023-07-27] MEDS: Ferrous Sulfate 325 MG TAB PO SCH ×2 (08:47→16:12)
[2023-07-27] MEDS: DULoxetine 30 MG CAP PO SCH (08:47)
[2023-07-27] MEDS: Gabapentin 100 MG CAP PO SCH ×2 (08:47→20:33)
[2023-07-27] MEDS: Senokot S 8.6-50 MG TAB PO SCH ×2 (08:48→20:34)
[2023-07-27] MEDS: Polyethylene Glycol 3350 17 GM Packet PO SCH (08:48)
[2023-07-27] MEDS: Potassium Chloride 20 MEQ in Premix Bag 1 BAG IVPB SCH ×2 (08:48→11:08)
[2023-07-27] MEDS ORDERED: Furosemide 20 MG/2 ML VIAL SLOW IVP SCH (09:15)
[2023-07-27] MEDS: Saccharomyces boulardii 250 MG CAP PO SCH (15:21)
[2023-07-27] MEDS: ALPRAZolam 0.5 MG TAB PO PRN (15:21)
[2023-07-27] MEDS: Isosorbide Mononitrate 30 MG ER.TAB PO SCH (16:12)
[2023-07-27] MEDS: D5W-AA 4.25% with LYTES 1,000 ML IV SCH (17:28)
[2023-07-27] MEDS: Atorvastatin Calcium 40 MG TAB PO SCH (20:33)
[2023-07-27] MEDS: Tamsulosin HCl 0.4 MG CAP PO SCH (20:35)
[2023-07-27] MEDS: Nicotine 14 MG PATCH TD SCH (20:36)
[2023-07-27] MEDS ORDERED: Insulin Glargine 30 UNITS/0.3 ML VIAL SC SCH (21:00)
[2023-07-28] MEDS: HumaLOG 300 UNITS/3 ML VIAL SC PRN ×6 (01:24→20:27)
[2023-07-28] MEDS: ALPRAZolam 0.5 MG TAB PO PRN (01:58)
[2023-07-28] MEDS: Piperacillin/Tazobactam 3.375 GM in Sodium Chloride 0.9% 100 ML IVPB SCH ×3 (05:30→20:19)
[2023-07-28] MEDS ORDERED: Furosemide 20 MG/2 ML VIAL SLOW IVP SCH (09:00)
[2023-07-28 09:47] LABS: Anion Gap 13 mmol/L (10-20); BUN (Urea Nitrogen) 13 mg/dL (8.4-25.7); Calc. Creatinine Clearance 61 mL/min (70-130); Calcium 7.8 mg/dL (7.8-10.44); Carbon Dioxide 20 mmol/L (23-31); Chloride 107 mmol/L (98-107); Estimated GFR 95; Glucose 256 mg/dL (83-110); Potassium 3.4 mmol/L (3.5-5.1); Sodium 137 mmol/L (136-145)
[2023-07-28] MEDS: Spironolactone 25 MG TAB PO SCH (09:59)
[2023-07-28] MEDS: Finasteride 5 MG TAB PO SCH (10:00)
[2023-07-28] MEDS: Thiamine 100 MG TAB PO SCH (10:00)
[2023-07-28] MEDS: Cholecalciferol 1,000 UNITS (25 MCG) TAB PO SCH (10:00)
[2023-07-28] MEDS: Ferrous Sulfate 325 MG TAB PO SCH ×2 (10:00→16:48)
[2023-07-28] MEDS: Folic Acid 1 MG TAB PO SCH (10:00)
[2023-07-28] MEDS: Ascorbic Acid 500 mg Chewable Tablet PO SCH (10:00)
[2023-07-28] MEDS: NIFEdipine XL 30 MG ER.TAB PO SCH (10:01)
[2023-07-28] MEDS: Cyanocobalamin (Vitamin B-12) 1,000 MCG TAB PO SCH (10:01)
[2023-07-28] MEDS: Ranolazine 500 MG ER.TAB PO SCH ×2 (10:01→20:22)
[2023-07-28] MEDS: Venlafaxine HCl XR 150 MG CAP PO SCH (10:01)
[2023-07-28] MEDS: Gabapentin 100 MG CAP PO SCH ×2 (10:01→20:21)
[2023-07-28] MEDS: DULoxetine 30 MG CAP PO SCH (10:01)
[2023-07-28] MEDS: Senokot S 8.6-50 MG TAB PO SCH ×2 (10:02→20:21)
[2023-07-28] MEDS: Polyethylene Glycol 3350 17 GM Packet PO SCH (10:02)
[2023-07-28] MEDS: D5W-AA 4.25% with LYTES 1,000 ML IV SCH (10:06)
[2023-07-28] MEDS ORDERED: Electrolyte Replacement Protocol 1 EACH FS SCH (10:45)
[2023-07-28] MEDS ORDERED: Potassium Chloride 20 MEQ TAB PO SCH (11:00)
[2023-07-28] MEDS: Potassium Chloride 20 MEQ in Premix Bag 1 BAG IVPB SCH ×2 (12:18→14:27)
[2023-07-28] MEDS: Isosorbide Mononitrate 30 MG ER.TAB PO SCH (12:18)
[2023-07-28] MEDS: Saccharomyces boulardii 250 MG CAP PO SCH (12:21)
[2023-07-28] MEDS: Nicotine 14 MG PATCH TD SCH (20:21)
[2023-07-28] MEDS: Tamsulosin HCl 0.4 MG CAP PO SCH (20:22)
[2023-07-28] MEDS: Atorvastatin Calcium 40 MG TAB PO SCH (20:22)
[2023-07-28] MEDS ORDERED: Insulin Glargine 30 UNITS/0.3 ML VIAL SC SCH (21:00)
[2023-07-29] MEDS: HumaLOG 300 UNITS/3 ML VIAL SC PRN ×4 (01:19→17:28)
[2023-07-29] MEDS: D5W-AA 4.25% with LYTES 1,000 ML IV SCH (02:19)
[2023-07-29] MEDS: Piperacillin/Tazobactam 3.375 GM in Sodium Chloride 0.9% 100 ML IVPB SCH (04:35)
[2023-07-29 04:41] LABS: Anion Gap 13 mmol/L (10-20); BUN (Urea Nitrogen) 15 mg/dL (8.4-25.7); Calc. Creatinine Clearance 68 mL/min (70-130); Calcium 7.9 mg/dL (7.8-10.44); Carbon Dioxide 20 mmol/L (23-31); Chloride 104 mmol/L (98-107); Estimated GFR 98; Glucose 293 mg/dL (83-110); Potassium 3.7 mmol/L (3.5-5.1); Sodium 133 mmol/L (136-145)
[2023-07-29] MEDS ORDERED: Insulin Glargine 30 UNITS/0.3 ML VIAL SC SCH (09:00)
[2023-07-29] MEDS: Ferrous Sulfate 325 MG TAB PO SCH ×2 (09:15→17:30)
[2023-07-29] MEDS: Ranolazine 500 MG ER.TAB PO SCH (09:16)
[2023-07-29] MEDS: DULoxetine 30 MG CAP PO SCH (09:16)
[2023-07-29] MEDS: Finasteride 5 MG TAB PO SCH (09:16)
[2023-07-29] MEDS: Folic Acid 1 MG TAB PO SCH (09:16)
[2023-07-29] MEDS: NIFEdipine XL 30 MG ER.TAB PO SCH (09:16)
[2023-07-29] MEDS: Venlafaxine HCl XR 150 MG CAP PO SCH (09:16)
[2023-07-29] MEDS: Spironolactone 25 MG TAB PO SCH (09:16)
[2023-07-29] MEDS: Ascorbic Acid 500 mg Chewable Tablet PO SCH (09:16)
[2023-07-29] MEDS: Cholecalciferol 1,000 UNITS (25 MCG) TAB PO SCH (09:16)
[2023-07-29] MEDS: Senokot S 8.6-50 MG TAB PO SCH (09:16)
[2023-07-29] MEDS: Cyanocobalamin (Vitamin B-12) 1,000 MCG TAB PO SCH (09:16)
[2023-07-29] MEDS: Thiamine 100 MG TAB PO SCH (09:16)
[2023-07-29] MEDS: Gabapentin 100 MG CAP PO SCH (09:17)
[2023-07-29] MEDS: Polyethylene Glycol 3350 17 GM Packet PO SCH (09:17)
[2023-07-29] MEDS: Isosorbide Mononitrate 30 MG ER.TAB PO SCH (09:20)
[2023-07-29] MEDS: Saccharomyces boulardii 250 MG CAP PO SCH (12:27)
[2023-07-29 16:03] VITALS: BP 133/79; TEMP 98.2
== END 2023-07-29 19:05 | DRG 466 ==
LOC: SURG A 23:10 → CCU 07-21 15:54 → IMCU/EMU 07-24 20:12 → SURG A 07-28 19:07
PROVIDERS: ADMIT Student in an Organized Health Care Education/Training Program; ATTEND Internal Medicine
PROC: 0SRB0JZ Replacement of Left Hip Joint with Synthetic Substitute, Open Approach (ICD-10-PCS; principal; 2023-07-11)
PROC: 0SPB0JZ Removal of Synthetic Substitute from Left Hip Joint, Open Approach (ICD-10-PCS; 2023-07-11)
PROC: 3E03329 Introduction of Other Anti-infective into Peripheral Vein, Percutaneous Approach (ICD-10-PCS; 2023-07-11)
PROC: 0Y6D0Z1 Detachment at Left Upper Leg, High, Open Approach (ICD-10-PCS; 2023-07-18)
PROC: 0Y6C0Z1 Detachment at Right Upper Leg, High, Open Approach (ICD-10-PCS; 2023-07-18)
PROC: 0QS7XZZ Reposition Left Upper Femur, External Approach (ICD-10-PCS; 2023-07-18)
PROC: 30233J1 Transfusion of Nonautologous Serum Albumin into Peripheral Vein, Percutaneous Approach (ICD-10-PCS; 2023-07-18)
PROC: 0BH17EZ Insertion of Endotracheal Airway into Trachea, Via Natural or Artificial Opening (ICD-10-PCS; 2023-07-21)
PROC: 3E033XZ Introduction of Vasopressor into Peripheral Vein, Percutaneous Approach (ICD-10-PCS; 2023-07-21)
PROC: 4A133R1 Monitoring of Arterial Saturation, Peripheral, Percutaneous Approach (ICD-10-PCS; 2023-07-21)
PROC: 5A1935Z Respiratory Ventilation, Less than 24 Consecutive Hours (ICD-10-PCS; 2023-07-21)
PROC: 30233N1 Transfusion of Nonautologous Red Blood Cells into Peripheral Vein, Percutaneous Approach (ICD-10-PCS; 2023-07-23)
DX: S72.142A Displaced intertrochanteric fracture of left femur, initial encounter for closed fracture (principal); A41.9 Sepsis, unspecified organism; J96.01 Acute respiratory failure with hypoxia; I50.33 Acute on chronic diastolic (congestive) heart failure; J18.9 Pneumonia, unspecified organism; E87.1 Hypo-osmolality and hyponatremia; M97.02XA Periprosthetic fracture around internal prosthetic left hip joint, initial encounter; D62 Acute posthemorrhagic anemia; R64 Cachexia; Z68.1 Body mass index [BMI] 19.9 or less, adult; N17.9 Acute kidney failure, unspecified; I24.89 Other forms of acute ischemic heart disease; E44.1 Mild protein-calorie malnutrition; E87.0 Hyperosmolality and hypernatremia; Z51.5 Encounter for palliative care; S72.22XA Displaced subtrochanteric fracture of left femur, initial encounter for closed fracture; I11.0 Hypertensive heart disease with heart failure; J44.9 Chronic obstructive pulmonary disease, unspecified; E87.6 Hypokalemia; E11.40 Type 2 diabetes mellitus with diabetic neuropathy, unspecified; F03.90 Unspecified dementia, unspecified severity, without behavioral disturbance, psychotic disturbance, mood disturbance, and anxiety; F17.210 Nicotine dependence, cigarettes, uncomplicated; I25.10 Atherosclerotic heart disease of native coronary artery without angina pectoris; I70.223 Atherosclerosis of native arteries of extremities with rest pain, bilateral legs; I95.9 Hypotension, unspecified; R41.0 Disorientation, unspecified; R59.0 Localized enlarged lymph nodes; R91.8 Other nonspecific abnormal finding of lung field; E83.42 Hypomagnesemia; R77.8 Other specified abnormalities of plasma proteins; E83.39 Other disorders of phosphorus metabolism; E11.65 Type 2 diabetes mellitus with hyperglycemia; K21.9 Gastro-esophageal reflux disease without esophagitis; N40.0 Benign prostatic hyperplasia without lower urinary tract symptoms; R53.81 Other malaise; Z95.1 Presence of aortocoronary bypass graft; Z79.899 Other long term (current) drug therapy; Z79.82 Long term (current) use of aspirin; Z79.4 Long term (current) use of insulin; E11.51 Type 2 diabetes mellitus with diabetic peripheral angiopathy without gangrene; V86.55XA Driver of 3- or 4- wheeled all-terrain vehicle (ATV) injured in nontraffic accident, initial encounter; E86.1 Hypovolemia; E78.2 Mixed hyperlipidemia
CPT/HCPCS: 36415; 36416; 36430; 36600; 71045; 71275; 72170; 74177; 80048; 80053; 80202; 81001; 82533; 82805; 83036; 83090; 83605; 83735; 83880; 84100; 84132; 84145; 84484; 85014; 85018; 85025; 85049; 85300; 85303; 85305; 85307; 85362; 85379; 85384; 85598; 85610; 85730; 86147; 86850; 86900; 86901; 87040; 88307; 93005; 93010; 93306; 93923; 93970; 94002; 94003; 96374; 96375; 97139; C1776; J0171; J0360; J0690; J1170; J1644; J1650; J1815; J1885; J1940; J2060; J2270; J2272; J2405; J2543; J2704; J3010; J3370; J3370-JW; J3475; J3480; J3486; J3490; J7042; J7050; J7070; J7120; J7620; P9016; P9045; Q9967; U0002

== ENCOUNTER 2023-07-30 12:58 | Inpatient (IN) | payer MEDICARE ==
[2023-07-30 13:56] LABS: #Monocytes 0.8 thou/uL (0.11-0.59); #Neutrophils 20.2 thou/uL (1.40-6.50); %Basophils 0.2 % (0.0-1.0); %Lymphocytes 6.9 % (21.0-51.0); %Monocytes 3.6 % (0.0-10.0); %Neutrophils 88.6 % (42.0-75.0); Hematocrit 33.1 % (42.0-52.0); Hemoglobin 10.1 g/dL (14.0-18.0); Mean Corpuscular HGB CONC 30.5 g/dL (32.0-36.0); Mean Corpuscular Hemoglobin 25.5 pg (27.0-31.0); Mean Corpuscular Volume 83.6 fl (78.0-98.0); Mean Platelet Volume 11.9 fL (7.4-10.4); Platelet Count 577 10x3/uL (130-400); RBC Distribution Width 22.5 % (11.5-14.5); Red Blood Cell (RBC) Count 3.96 mill/uL (4.70-6.10); White Blood Cell (WBC) Count 22.8 10x3/uL (4.8-10.8)
[2023-07-30 14:23] LABS: Troponin I 0.034 ng/mL (< 0.028)
[2023-07-30 14:25] LABS: ALT (SGPT) 82 U/L (8-55); AST (SGOT) 71 U/L (5-34); Albumin 3.5 g/dL (3.4-4.8); Alkaline Phosphatase 136 U/L (40-110); Anion Gap 20 mmol/L (10-20); BUN (Urea Nitrogen) 11 mg/dL (8.4-25.7); Bilirubin, Total 0.6 mg/dL (0.2-1.2); Calc. Creatinine Clearance 0 mL/min (70-130); Calcium 8.8 mg/dL (7.8-10.44); Carbon Dioxide 20 mmol/L (23-31); Chloride 103 mmol/L (98-107); Estimated GFR 93; Globulin 3.6 g/dL (2.4-3.5); Glucose 369 mg/dL (83-110); Magnesium 1.8 mg/dL (1.6-2.6); Potassium 3.6 mmol/L (3.5-5.1); Protein, Total 7.1 g/dL (5.8-8.1); Sodium 139 mmol/L (136-145)
[2023-07-30] MEDS ORDERED: Piperacillin/Tazobactam 4.5 GM VIAL ONE (14:34)
[2023-07-30] MEDS ORDERED: Vancomycin 1 GM in Premix Bag 1 BAG IVPB SCH (14:45)
[2023-07-30] MEDS ORDERED: Acetaminophen 325 MG TAB PO PRN (15:07)
[2023-07-30] MEDS ORDERED: Ondansetron ODT 4 MG TAB PO PRN (15:07)
[2023-07-30] MEDS ORDERED: Ondansetron PF 4 MG/2 ML Vial IVP PRN (15:07)
[2023-07-30] MEDS ORDERED: Vancomycin 1 GM/200 ML (FROZEN) BAG ONE (15:12)
[2023-07-30 15:30] LABS: Bacteria/HPF None Seen HPF (None Seen); Bilirubin Negative (Negative); Blood, Urine 1+ (Negative); CAUTI Indications for Culture Dysuria,urgency,freq; Clarity Clear (Clear); Glucose, Urine (Dipstick) Greater than 1000 mg/dL (Negative); Ketone, Urine 20 mg/dL (Negative); Leukocyte Negative Leu/uL (Negative); Nitrite Negative (Negative); Protein, Urine (Dipstick) Negative (Neg-Trace); RBC/HPF 0-3 HPF (0-3); Specific Gravity, Urine 1.016 (1.002-1.036); Squamous Epithelial None Seen HPF (0-3); Urobilinogen Normal mg/dL (Less than 2); WBC/HPF 0-3 HPF (0-3)
[2023-07-30 15:36] LABS: Urine Culture Reflex No No
[2023-07-30 17:10] LABS: Troponin I 0.037 ng/mL (< 0.028)
[2023-07-30 20:13] LABS: Troponin I 0.037 ng/mL (< 0.028)
[2023-07-30] MEDS ORDERED: Dextrose 5% in Water 1,000 ML IV PRN (20:37)
[2023-07-30] MEDS ORDERED: Glucagon 1 MG/ML KIT IM PRN (20:37)
[2023-07-30] MEDS ORDERED: Dextrose 50% Abboject 50 ML SYRINGE SLOW IVP PRN (20:37)
[2023-07-30] MEDS: HumaLOG 300 UNITS/3 ML VIAL SC PRN (20:45)
[2023-07-30] MEDS: Piperacillin/Tazobactam 3.375 GM in Sodium Chloride 0.9% 100 ML IVPB SCH (20:48)
[2023-07-30] MEDS: Tamsulosin HCl 0.4 MG CAP PO SCH (20:50)
[2023-07-30] MEDS: Gabapentin 100 MG CAP PO SCH (20:50)
[2023-07-30] MEDS: DULoxetine 30 MG CAP PO SCH (20:50)
[2023-07-30] MEDS: Atorvastatin Calcium 40 MG TAB PO SCH (20:50)
[2023-07-30] MEDS: Ranolazine 500 MG ER.TAB PO SCH (20:50)
[2023-07-30] MEDS: tiZANidine HCl 4 MG TAB PO SCH (20:52)
[2023-07-31] MEDS: Piperacillin/Tazobactam 3.375 GM in Sodium Chloride 0.9% 100 ML IVPB SCH ×3 (03:55→20:05)
[2023-07-31 04:26] LABS: #Eosinphils 0.1 thou/uL (0.0-0.7); #Monocytes 0.7 thou/uL (0.11-0.59); %Basophils 0.2 % (0.0-1.0); %Eosinophils 0.3 % (0.0-10.0); %Lymphocytes 6.1 % (21.0-51.0); %Monocytes 3.6 % (0.0-10.0); %Neutrophils 89.2 % (42.0-75.0); Hematocrit 30.9 % (42.0-52.0); Hemoglobin 9.6 g/dL (14.0-18.0); Mean Corpuscular HGB CONC 31.1 g/dL (32.0-36.0); Mean Corpuscular Hemoglobin 25.5 pg (27.0-31.0); Mean Corpuscular Volume 82.2 fl (78.0-98.0); Platelet Count 509 10x3/uL (130-400); RBC Distribution Width 22.2 % (11.5-14.5); Red Blood Cell (RBC) Count 3.76 mill/uL (4.70-6.10)
[2023-07-31 04:56] LABS: ALT (SGPT) 67 U/L (8-55); AST (SGOT) 46 U/L (5-34); Albumin 3.2 g/dL (3.4-4.8); Alkaline Phosphatase 131 U/L (40-110); Anion Gap 17 mmol/L (10-20); BUN (Urea Nitrogen) 12 mg/dL (8.4-25.7); Bilirubin, Total 0.7 mg/dL (0.2-1.2); Calc. Creatinine Clearance 41 mL/min (70-130); Calcium 8.8 mg/dL (7.8-10.44); Carbon Dioxide 21 mmol/L (23-31); Chloride 108 mmol/L (98-107); Estimated GFR 95; Globulin 3.3 g/dL (2.4-3.5); Glucose 353 mg/dL (83-110); Potassium 3.3 mmol/L (3.5-5.1); Protein, Total 6.5 g/dL (5.8-8.1); Sodium 143 mmol/L (136-145)
[2023-07-31] MEDS: HumaLOG 300 UNITS/3 ML VIAL SC PRN ×3 (06:19→21:24)
[2023-07-31] MEDS ORDERED: Potassium Chloride 20 MEQ TAB PO SCH (07:15)
[2023-07-31] MEDS ORDERED: Non-Formulary Item 1 EACH (Desvenlafaxine [Desvenlafaxine Er] 100 MG Tab.Er.24h) PO SCH (09:00)
[2023-07-31] MEDS ORDERED: FLU VACC QS2023(65UP)/MF59C/PF 60 MCG/0.5 ML SYRINGE IM ONE (09:00)
[2023-07-31] MEDS: Morphine 4 MG/ML VIAL SLOW IVP PRN ×2 (10:19→20:47)
[2023-07-31] MEDS: tiZANidine HCl 4 MG TAB PO SCH ×4 (10:22→21:18)
[2023-07-31] MEDS: Isosorbide Mononitrate 30 MG ER.TAB PO SCH (10:23)
[2023-07-31] MEDS: Cyanocobalamin (Vitamin B-12) 1,000 MCG TAB PO SCH (10:23)
[2023-07-31] MEDS: Lisinopril 20 MG TAB PO SCH (10:23)
[2023-07-31] MEDS: Ranolazine 500 MG ER.TAB PO SCH ×3 (10:23→21:18)
[2023-07-31] MEDS: Aspirin 81 mg Enteric Coated Tablet PO SCH (10:23)
[2023-07-31] MEDS: Finasteride 5 MG TAB PO SCH (10:26)
[2023-07-31] MEDS: Insulin Glargine 30 UNITS/0.3 ML VIAL SC SCH (10:26)
[2023-07-31] MEDS: Cholecalciferol 1,000 UNITS (25 MCG) TAB PO SCH (10:26)
[2023-07-31] MEDS: Vancomycin HCl 500 MG in Sodium Chloride 0.9% 100 ML IVPB SCH (17:49)
[2023-07-31] MEDS: Atorvastatin Calcium 40 MG TAB PO SCH ×2 (20:06→21:17)
[2023-07-31] MEDS: DULoxetine 30 MG CAP PO SCH ×2 (20:06→21:17)
[2023-07-31] MEDS: Tamsulosin HCl 0.4 MG CAP PO SCH ×2 (20:07→21:18)
[2023-07-31] MEDS: Gabapentin 100 MG CAP PO SCH ×2 (20:07→21:17)
[2023-08-01] MEDS: Piperacillin/Tazobactam 3.375 GM in Sodium Chloride 0.9% 100 ML IVPB SCH ×2 (04:38→11:56)
[2023-08-01 05:03] LABS: #Basophils 0.1 thou/uL (0.0-0.2); #Eosinphils 0.1 thou/uL (0.0-0.7); #Monocytes 0.7 thou/uL (0.11-0.59); #Neutrophils 15.9 thou/uL (1.40-6.50); %Basophils 0.3 % (0.0-1.0); %Eosinophils 0.8 % (0.0-10.0); %Lymphocytes 7.1 % (21.0-51.0); %Monocytes 3.8 % (0.0-10.0); %Neutrophils 87.4 % (42.0-75.0); Hematocrit 29.6 % (42.0-52.0); Hemoglobin 8.8 g/dL (14.0-18.0); Mean Corpuscular HGB CONC 29.7 g/dL (32.0-36.0); Mean Corpuscular Hemoglobin 25.1 pg (27.0-31.0); Mean Corpuscular Volume 84.3 fl (78.0-98.0); Mean Platelet Volume 11.6 fL (7.4-10.4); Platelet Count 442 10x3/uL (130-400); RBC Distribution Width 22.3 % (11.5-14.5); Red Blood Cell (RBC) Count 3.51 mill/uL (4.70-6.10); White Blood Cell (WBC) Count 18.2 10x3/uL (4.8-10.8)
[2023-08-01 05:42] LABS: ALT (SGPT) 58 U/L (8-55); AST (SGOT) 39 U/L (5-34); Albumin 3.1 g/dL (3.4-4.8); Alkaline Phosphatase 135 U/L (40-110); Anion Gap 17 mmol/L (10-20); BUN (Urea Nitrogen) 21 mg/dL (8.4-25.7); Bilirubin, Total 0.5 mg/dL (0.2-1.2); Calc. Creatinine Clearance 58 mL/min (70-130); Calcium 8.8 mg/dL (7.8-10.44); Carbon Dioxide 21 mmol/L (23-31); Chloride 115 mmol/L (98-107); Estimated GFR 93; Globulin 3.2 g/dL (2.4-3.5); Glucose 293 mg/dL (83-110); Potassium 3.6 mmol/L (3.5-5.1); Protein, Total 6.3 g/dL (5.8-8.1); Sodium 149 mmol/L (136-145)
[2023-08-01] MEDS: HumaLOG 300 UNITS/3 ML VIAL SC PRN ×2 (06:00→11:58)
[2023-08-01] MEDS: Aspirin 81 mg Enteric Coated Tablet PO SCH (09:35)
[2023-08-01] MEDS: Isosorbide Mononitrate 30 MG ER.TAB PO SCH (09:35)
[2023-08-01] MEDS: Lisinopril 20 MG TAB PO SCH (09:35)
[2023-08-01] MEDS: Finasteride 5 MG TAB PO SCH (09:35)
[2023-08-01] MEDS: Ranolazine 500 MG ER.TAB PO SCH ×2 (09:38→21:19)
[2023-08-01] MEDS: Cholecalciferol 1,000 UNITS (25 MCG) TAB PO SCH (09:38)
[2023-08-01] MEDS: tiZANidine HCl 4 MG TAB PO SCH ×3 (09:39→22:26)
[2023-08-01] MEDS: Insulin Glargine 30 UNITS/0.3 ML VIAL SC SCH (09:41)
[2023-08-01] MEDS: Cyanocobalamin (Vitamin B-12) 1,000 MCG TAB PO SCH (09:42)
[2023-08-01] MEDS: Morphine 4 MG/ML VIAL SLOW IVP PRN (09:42)
[2023-08-01 16:53] LABS: Vancomycin, Trough 4.1 ug/mL
[2023-08-01] MEDS ORDERED: Vancomycin HCl 750 MG in Sodium Chloride 0.9% 250 ML 250 ML IVPB SCH (18:00)
[2023-08-01] MEDS: Vancomycin HCl 500 MG in Sodium Chloride 0.9% 100 ML IVPB SCH (20:04)
[2023-08-01] MEDS: Tamsulosin HCl 0.4 MG CAP PO SCH (21:19)
[2023-08-01] MEDS: Atorvastatin Calcium 40 MG TAB PO SCH (21:19)
[2023-08-01] MEDS: Gabapentin 100 MG CAP PO SCH (21:19)
[2023-08-01] MEDS: DULoxetine 30 MG CAP PO SCH (21:20)
[2023-08-02 05:42] LABS: #Eosinphils 0.1 thou/uL (0.0-0.7); #Monocytes 0.5 thou/uL (0.11-0.59); #Neutrophils 12.2 thou/uL (1.40-6.50); %Basophils 0.2 % (0.0-1.0); %Eosinophils 0.8 % (0.0-10.0); %Lymphocytes 9.1 % (21.0-51.0); %Monocytes 3.7 % (0.0-10.0); %Neutrophils 85.6 % (42.0-75.0); Hemoglobin 9.7 g/dL (14.0-18.0); Mean Corpuscular HGB CONC 29.4 g/dL (32.0-36.0); Mean Corpuscular Hemoglobin 25.5 pg (27.0-31.0); Mean Corpuscular Volume 86.6 fl (78.0-98.0); Mean Platelet Volume 11.4 fL (7.4-10.4); Platelet Count 461 10x3/uL (130-400); RBC Distribution Width 22.4 % (11.5-14.5); Red Blood Cell (RBC) Count 3.81 mill/uL (4.70-6.10); White Blood Cell (WBC) Count 14.3 10x3/uL (4.8-10.8)
[2023-08-02 06:02] LABS: ALT (SGPT) 51 U/L (8-55); AST (SGOT) 47 U/L (5-34); Albumin 3.2 g/dL (3.4-4.8); Alkaline Phosphatase 125 U/L (40-110); Anion Gap 15 mmol/L (10-20); BUN (Urea Nitrogen) 18 mg/dL (8.4-25.7); Bilirubin, Total 0.5 mg/dL (0.2-1.2); Calc. Creatinine Clearance 61 mL/min (70-130); Carbon Dioxide 25 mmol/L (23-31); Chloride 115 mmol/L (98-107); Estimated GFR 96; Globulin 3.4 g/dL (2.4-3.5); Glucose 142 mg/dL (83-110); Potassium 3.5 mmol/L (3.5-5.1); Protein, Total 6.6 g/dL (5.8-8.1)
[2023-08-02 06:05] LABS: Sodium 151 mmol/L (136-145)
[2023-08-02] MEDS: tiZANidine HCl 4 MG TAB PO SCH ×3 (09:38→20:13)
[2023-08-02] MEDS: Finasteride 5 MG TAB PO SCH (09:39)
[2023-08-02] MEDS: Cholecalciferol 1,000 UNITS (25 MCG) TAB PO SCH (09:39)
[2023-08-02] MEDS: Cyanocobalamin (Vitamin B-12) 1,000 MCG TAB PO SCH (09:39)
[2023-08-02] MEDS: Aspirin 81 mg Enteric Coated Tablet PO SCH (09:39)
[2023-08-02] MEDS: Insulin Glargine 30 UNITS/0.3 ML VIAL SC SCH ×2 (09:40→10:23)
[2023-08-02] MEDS: Lisinopril 20 MG TAB PO SCH (09:41)
[2023-08-02] MEDS: Isosorbide Mononitrate 30 MG ER.TAB PO SCH (10:21)
[2023-08-02] MEDS: Ranolazine 500 MG ER.TAB PO SCH ×2 (10:21→20:13)
[2023-08-02 13:35] VITALS: BMI 17.2
[2023-08-02] MEDS: DULoxetine 30 MG CAP PO SCH (20:12)
[2023-08-02] MEDS: Atorvastatin Calcium 40 MG TAB PO SCH (20:12)
[2023-08-02] MEDS: Gabapentin 100 MG CAP PO SCH (20:13)
[2023-08-02] MEDS: Tamsulosin HCl 0.4 MG CAP PO SCH (20:13)
[2023-08-03 05:37] LABS: #Eosinphils 0.1 thou/uL (0.0-0.7); #Monocytes 0.5 thou/uL (0.11-0.59); #Neutrophils 11.6 thou/uL (1.40-6.50); %Basophils 0.2 % (0.0-1.0); %Eosinophils 0.6 % (0.0-10.0); %Lymphocytes 10.7 % (21.0-51.0); %Monocytes 3.9 % (0.0-10.0); Hematocrit 33.6 % (42.0-52.0); Mean Corpuscular HGB CONC 29.8 g/dL (32.0-36.0); Mean Corpuscular Hemoglobin 25.6 pg (27.0-31.0); Mean Corpuscular Volume 85.9 fl (78.0-98.0); Mean Platelet Volume 10.9 fL (7.4-10.4); Platelet Count 451 10x3/uL (130-400); Red Blood Cell (RBC) Count 3.91 mill/uL (4.70-6.10); White Blood Cell (WBC) Count 13.8 10x3/uL (4.8-10.8)
[2023-08-03 06:04] LABS: ALT (SGPT) 50 U/L (8-55); AST (SGOT) 55 U/L (5-34); Albumin 3.2 g/dL (3.4-4.8); Alkaline Phosphatase 126 U/L (40-110); Anion Gap 15 mmol/L (10-20); BUN (Urea Nitrogen) 17 mg/dL (8.4-25.7); Bilirubin, Total 0.5 mg/dL (0.2-1.2); Calc. Creatinine Clearance 54 mL/min (70-130); Calcium 8.8 mg/dL (7.8-10.44); Carbon Dioxide 23 mmol/L (23-31); Chloride 115 mmol/L (98-107); Estimated GFR 92; Globulin 3.6 g/dL (2.4-3.5); Glucose 152 mg/dL (83-110); Potassium 3.4 mmol/L (3.5-5.1); Protein, Total 6.8 g/dL (5.8-8.1); Sodium 150 mmol/L (136-145)
[2023-08-03] MEDS ORDERED: Morphine 10 MG/0.5 ML ORAL SYRINGE SL PRN (08:11)
[2023-08-03] MEDS ORDERED: Lorazepam 2 MG/ML VIAL IM PRN (08:11)
[2023-08-03] MEDS ORDERED: Polyethylene Glycol 3350 17 GM Packet PO PRN (08:13)
[2023-08-03] MEDS: Ranolazine 500 MG ER.TAB PO SCH ×2 (09:31→21:11)
[2023-08-03] MEDS: Finasteride 5 MG TAB PO SCH (09:31)
[2023-08-03] MEDS: Lisinopril 20 MG TAB PO SCH (09:31)
[2023-08-03] MEDS: Isosorbide Mononitrate 30 MG ER.TAB PO SCH (09:31)
[2023-08-03] MEDS: tiZANidine HCl 4 MG TAB PO SCH ×3 (09:31→21:10)
[2023-08-03] MEDS: HYDROcodone/Acetaminophen 5/325 mg Tablet PO PRN ×2 (09:32→16:37)
[2023-08-03] MEDS: Artificial Tear Sol 15 ML BOT EA EYE SCH ×3 (09:49→21:10)
[2023-08-03] MEDS: Insulin Glargine 30 UNITS/0.3 ML VIAL SC SCH (10:56)
[2023-08-03] MEDS: Senokot S 8.6-50 MG TAB PO SCH ×2 (10:57→21:11)
[2023-08-03] MEDS: HumaLOG 300 UNITS/3 ML VIAL SC PRN ×2 (12:23→21:46)
[2023-08-03] MEDS: Tamsulosin HCl 0.4 MG CAP PO SCH (21:10)
[2023-08-03] MEDS: DULoxetine 30 MG CAP PO SCH (21:10)
[2023-08-03] MEDS: Gabapentin 100 MG CAP PO SCH (21:11)
[2023-08-04] MEDS: HYDROcodone/Acetaminophen 5/325 mg Tablet PO PRN (03:13)
[2023-08-04] MEDS: HumaLOG 300 UNITS/3 ML VIAL SC PRN (04:27)
[2023-08-04] MEDS: tiZANidine HCl 4 MG TAB PO SCH ×3 (09:00→19:59)
[2023-08-04] MEDS: Senokot S 8.6-50 MG TAB PO SCH ×2 (09:00→19:59)
[2023-08-04] MEDS: Finasteride 5 MG TAB PO SCH (09:01)
[2023-08-04] MEDS: Ranolazine 500 MG ER.TAB PO SCH ×2 (09:08→19:58)
[2023-08-04] MEDS: Artificial Tear Sol 15 ML BOT EA EYE SCH ×3 (09:09→19:59)
[2023-08-04] MEDS: DULoxetine 30 MG CAP PO SCH (19:56)
[2023-08-04] MEDS: Gabapentin 100 MG CAP PO SCH (19:58)
[2023-08-04] MEDS: Tamsulosin HCl 0.4 MG CAP PO SCH (19:59)
[2023-08-04] MEDS ORDERED: traZODone HCl 50 MG TAB PO SCH (21:00)
[2023-08-05 00:24] VITALS: TEMP 99.6
[2023-08-05 08:20] VITALS: BP 98/50
[2023-08-05] MEDS: Artificial Tear Sol 15 ML BOT EA EYE SCH (08:28)
[2023-08-05] MEDS: Finasteride 5 MG TAB PO SCH (08:29)
[2023-08-05] MEDS: Ranolazine 500 MG ER.TAB PO SCH (08:29)
[2023-08-05] MEDS: Senokot S 8.6-50 MG TAB PO SCH (08:29)
[2023-08-05] MEDS: tiZANidine HCl 4 MG TAB PO SCH (08:29)
== END 2023-08-05 11:04 | disposition hospice, inpatient (51) | DRG 564 ==
LOC: ERS 12:58 → 2NO 15:12 → T4-B 08-01 19:16
PROVIDERS: ADMIT Family Medicine; ATTEND Internal Medicine
PROC: 3E03329 Introduction of Other Anti-infective into Peripheral Vein, Percutaneous Approach (ICD-10-PCS; 2023-07-30)
PROC: 0T9B70Z Drainage of Bladder with Drainage Device, Via Natural or Artificial Opening (ICD-10-PCS; principal; 2023-08-04)
DX: T87.89 Other complications of amputation stump (principal); A41.9 Sepsis, unspecified organism; L89.153 Pressure ulcer of sacral region, stage 3; E44.0 Moderate protein-calorie malnutrition; Z66 Do not resuscitate; Z51.5 Encounter for palliative care; Z68.1 Body mass index [BMI] 19.9 or less, adult; E87.0 Hyperosmolality and hypernatremia; E11.52 Type 2 diabetes mellitus with diabetic peripheral angiopathy with gangrene; E11.40 Type 2 diabetes mellitus with diabetic neuropathy, unspecified; I25.10 Atherosclerotic heart disease of native coronary artery without angina pectoris; E78.5 Hyperlipidemia, unspecified; I10 Essential (primary) hypertension; F32.A Depression, unspecified; J44.9 Chronic obstructive pulmonary disease, unspecified; F17.210 Nicotine dependence, cigarettes, uncomplicated; E78.2 Mixed hyperlipidemia; F39 Unspecified mood [affective] disorder; H57.10 Ocular pain, unspecified eye; R31.9 Hematuria, unspecified; Z86.73 Personal history of transient ischemic attack (TIA), and cerebral infarction without residual deficits; Z90.49 Acquired absence of other specified parts of digestive tract; Z98.890 Other specified postprocedural states; Z95.1 Presence of aortocoronary bypass graft; Z79.82 Long term (current) use of aspirin; Z79.899 Other long term (current) drug therapy; Z79.4 Long term (current) use of insulin
CPT/HCPCS: 36415; 36416; 71045; 80053; 80202; 81001; 83605; 83735; 84145; 84484; 85025; 87040; 93005; 96365; 96367; 97139; J1815; J2270; J2543; J3370; J3370-JW; J3490